=== PATIENT | male | born 1975 | race African-American/Black ===

== ENCOUNTER 2016-08-25 10:16 | Inpatient (IN) | payer OTHER ==
[2016-08-25 12:33] VITALS: BMI 25.8
--- NOTE | 2016-08-25 14:01 | HP ---
CIWA Score - CIWA Score Nausea/Vomitin Muscle Tremors: 3 Anxiety: 3 Agitation: 3 Paroxysmal Sweats: 1-Minimal Palms Moist Orientation: 0-Oriented Tacttile Disturbances: 2-Mild Itch/Numbness/Burn Auditory Disturbances: 2-Mild Harshness/Frighten Visual Disturbances: 2-Mild Sensitivity Headache: 2-Mild CIWA-Ar Total Score: 21 Admission ROS BHS - HPI Chief Complaint: I NEED HELP TO STOP DRINKING ALCOHOL AND COCAINE Allergies/Adverse Reactions: Allergies Allergy/AdvReac Type Severity Reaction Status Date / Time No Known Allergies Allergy Verified 08/25/16 13:55 History of Present Illness: THIS 41 YEARS OLD MALE WITH ALCOHOL AND COCAINE DEPENDENCE SEEKING HELP TO STOP USING,LAST DETOX [facility] 12/17/15 TO 12/20/15 SEVERAL ADMISSIONS IN THE PAST KEEP RELAPSING NO SIGNIFICANT PERIOD OF SOBRIETY Exam Limitations: No Limitations - Ebola screening Have you traveled outside of the country in the last 21 days: No Have you had contact with anyone from an Ebola affected area: No Have you been sick,other than usual withdrawal symptoms: No Do you have a fever: No - Review of Systems Constitutional: Chills, Diaphoresis, Loss of Appetite, Malaise, Night Sweats, Changes in sleep, Weakness EENT: reports: Nose Congestion Respiratory: reports: No Symptoms reported Cardiac: reports: Palpitations GI: reports: Diarrhea, Nausea, Vomiting, Abdominal cramping : reports: No Symptoms Reported Musculoskeletal: reports: Muscle Pain Integumentary: reports: Dryness, Other (BLISTER BOTH FEET) Neuro: reports: Headache, Seizure, Tremors Endocrine: reports: No Symptoms Reported Hematology: reports: No Symptoms Reported Psychiatric: reports: No Sypmtoms Reported, Judgement Intact, Mood/Affect Appropiate, other (SCHIZOAFFECTIVE DISORDER) Other Systems: Reviewed and Negative Patient History - Patient Medical History Hx Anemia: No Hx Asthma: No Hx Chronic Obstructive Pulmonary Disease (COPD): No Hx Cancer: No Hx Cardiac Disorders: No Hx Congestive Heart Failure: No Hx Hypertension: No Hx Hypercholesterolemia: No Hx Pacemaker: No HX Cerebrovascular Accident: No Hx Seizures: No Hx Dementia: No Hx Diabetes: No Hx Gastrointestinal Disorders: No Hx Liver Disease: No Hx Genitourinary Disorders: No Hx Sexually Transmitted Disorders: No Hx Renal Disease (ESRD): No Hx Thyroid Disease: No Hx Human Immunodeficiency Virus (HIV): No (last 04/07 last negative) Hx Hepatitis C: No Hx Depression: Yes Hx Suicide Attempt: No Hx Bipolar Disorder: No Hx Schizophrenia: Yes (SCHZOAFFECTIVE DISORDER) - Patient Surgical History Past Surgical History: No Hx Neurologic Surgery: No Hx Cataract Extraction: No Hx Cardiac Surgery: No Hx Lung Surgery: No Hx Breast Surgery: No Hx Breast Biopsy: No Hx Abdominal Surgery: No Hx Appendectomy: No Hx Cholecystectomy: No Hx Genitourinary Surgery: No Hx Section: No Hx Orthopedic Surgery: No Anesthesia Reaction: No - PPD History Previous Implant?: Yes Documented Results: Negative w/o proof Date: 01/14/15 Results: 0 mm PPD to be Administered?: Yes - Smoking Cessation Smoking history: Current every day smoker Have you smoked in the past 12 months: Yes Aproximately how many cigarettes per day: 20 Hx Chewing Tobacco Use: No Initiated information on smoking cessation: Yes 'Breaking Loose' booklet given: 08/25/16 - Substance & Tx. History Hx Alcohol Use: Yes Hx Substance Use: Yes Substance Use Type: Alcohol, Cocaine Hx Substance Use Treatment: Yes (12/17/15 TO 12/20/15) - Substances Abused Alcohol Route: Oral Frequency: Daily Amount used: 1 pint liquor Age of first use: 21 Date of Last Use: 08/24/16 Cocaine Route: Inhalation Frequency: Daily Amount used: 1 gram Age of first use: 23 Date of Last Use: 08/24/16 Family Disease History - Family Disease History Family Disease History: Diabetes: Grandparent, Other: Father (alcohol, cocaine) , Mother (alcohol, cocaine) Admission Physical Exam S - Vital Signs Vital Signs: Vital Signs - 24 hr 08/25/16 12:28 Temperature 96 F L Pulse Rate 73 Respiratory 20 Rate Blood Pressure 156/72 - Physical General Appearance: Yes: Moderate Distress, Tremorous, Irritable, Sweating, Anxious HEENTM: Yes: Normal ENT Inspection, PIERCE, Pharynx Normal Respiratory: Yes: Lungs Clear, Normal Breath Sounds, No Respiratory Distress Neck: Yes: No masses,lesions,Nodules, Supple, Trachea in good position Breast: Yes: Within Normal Limits Cardiology: Yes: Within Normal Limits, Regular Rhythm, Regular Rate, S1, S2 Abdominal: Yes: Within Normal Limits, Normal Bowel Sounds, Flat, Soft Genitourinary: Yes: Within Normal Limits Back: Yes: Normal Inspection, Muscle Spasm Musculoskeletal: Yes: Back pain, Joint Stiffness, Muscle Pain Extremities: Yes: Within Normal Limits, Normal Inspection, Normal Range of Motion, Tremors Neurological: Yes: day spa manager II-XII NML intact, Alert, Motor Strength 5/5 Integumentary: Yes: Dry Lymphatic: Yes: Within Normal Limits - Diagnostic (1) Alcohol dependence with uncomplicated withdrawal Current Visit: Yes Status: Acute (2) Seizure Current Visit: Yes Status: Acute (3) Weight loss Current Visit: Yes Status: Acute (4) Cocaine abuse Current Visit: Yes Status: Chronic (5) Nicotine dependence Current Visit: Yes Status: Chronic Qualifiers: Nicotine product type: cigarettes Substance use status: uncomplicated Qualified Code(s): F17.210 - Nicotine dependence, cigarettes, uncomplicated (6) Schizoaffective disorder Current Visit: Yes Status: Chronic (7) ADHD (attention deficit hyperactivity disorder) Current Visit: No Status: Chronic Cleared for Admission [facility] - Detox or Rehab [facility] Level of Care: Medically Managed Detox Regimen/Protocol: Librium [facility] Breath Alcohol Content Breath Alcohol Content: 0 Urine Drug Screen - Results Drug Screen Negative: No Urine Drug Screen Results: MINDY-Cocaine
[2016-08-25] MEDS ORDERED: LOPERAMIDE HCL 2 MG CAPSULE PO PRN (14:35)
[2016-08-25] MEDS ORDERED: hydrOXYzine PAMOATE 50 MG CAPSULE (FP) PO PRN (14:35)
[2016-08-25] MEDS ORDERED: NICOTINE POLACRILEX 2 MG GUM BUC PRN (14:35)
[2016-08-25] MEDS ORDERED: MENTHOL/PHENOL 1 EACH UD MM PRN (14:35)
[2016-08-25] MEDS ORDERED: guaiFENesin/D-METHORPHAN HB 10 ML UNIT-DOSE CUPS PO PRN (14:35)
[2016-08-25] MEDS ORDERED: IBUPROFEN 400 MG TABLET (FP) PO PRN (14:35)
[2016-08-25] MEDS ORDERED: P-EPHED 60MG/TRIPROLIDI 2.5MG TABLET PO PRN (14:35)
[2016-08-25] MEDS ORDERED: MAG HYDROX/AL HYDROX/SIMETH 30 ML UNIT-DOSE CUP PO PRN (14:35)
[2016-08-25] MEDS ORDERED: MAGNESIUM CITRATE 300 ML BOTTLE PO PRN (14:35)
[2016-08-25] MEDS ORDERED: MAGNESIUM HYDROX 2400MG/30ML ORAL SUSPENSION 30 ML CUP PO PRN (14:35)
[2016-08-25] MEDS ORDERED: ACETAMINOPHEN 325 MG TABLET (FP) PO PRN (14:35)
[2016-08-25] MEDS ORDERED: chlordiazePOXIDE HCL 25 MG CAPSULE PO PRN (14:35)
[2016-08-25] MEDS ORDERED: diphenhydrAMINE HCL 50 MG CAPSULE PO PRN (14:35)
[2016-08-25] MEDS ORDERED: chlordiazePOXIDE HCL 25 MG CAPSULE PO ONE (14:36)
[2016-08-25 16:22] LABS: URINE APPEARANCE CLEAR; URINE BILIRUBIN NEGATIVE (NEGATIVE); URINE COLOR YELLOW; URINE GLUCOSE (UA) NEGATIVE (NEGATIVE); URINE KETONE 1+ (NEGATIVE); URINE LEUK ESTERASE NEGATIVE (NEGATIVE); URINE NITRITE NEGATIVE (NEGATIVE); URINE UROBILINOGEN 2.0 E.U/dl E.U./dl (0.2-1.0)
[2016-08-25 16:54] LABS: URINE BLOOD 1+ (NEGATIVE); URINE PROTEIN 1+ (NEGATIVE)
[2016-08-25 17:16] LABS: URINE MUCUS MANY; URINE RBC 5 /hpf (0-3); URINE WBC 2 /hpf (3-5)
[2016-08-25] MEDS: chlordiazePOXIDE HCL 25 MG CAPSULE PO SCH ×2 (17:23→22:58)
[2016-08-25] MEDS ORDERED: THIAMINE HCL 100 MG TABLET (FP) PO SCH (22:00)
[2016-08-26] MEDS: chlordiazePOXIDE HCL 25 MG CAPSULE PO SCH ×2 (06:02→10:57)
[2016-08-26 09:51] LABS: MCH 30.6 pg (25.7-33.7); MCHC 32.9 g/dl (32.0-35.9); MEAN CELL VOLUME 93.2 fl (80-96); MEAN PLT VOLUME 9.7 fl (7.5-11.1); PLATELET COUNT 260 K/MM3 (134-434); RDW 13.7 % (11.9-15.9); WHITE BLOOD COUNT 7.3 K/mm3 (4.0-10.0)
[2016-08-26] MEDS ORDERED: PRENATAL VITAMINS W/ FOLIC ACID TABLET (FP) PO SCH (10:00)
[2016-08-26 10:11] VITALS: BP 127/78; PULSE 73; TEMP 96.1
[2016-08-26 10:21] LABS: ALBUMIN 4.5 g/dl (3.4-5.0); ALK PHOS 62 U/L (45-117); ANION GAP 11 (8-16); BILIRUBIN,TOTAL 0.9 mg/dL (0.2-1.0); CALCIUM 9.5 mg/dL (8.5-10.1); CO2 29 mmol/L (21-32); COCKROFT - GAULT 85.65; CREATININE 1.3 mg/dL (0.7-1.3); GLUCOSE,RANDOM 107 mg/dL (74-106); SGOT/AST 53 U/L (15-37); SGPT/ALT 40 U/L (12-78)
[2016-08-26] MEDS ORDERED: AMMONIUM LACTATE 12% LOTION 225 GM BOTTLE TP SCH (10:45)
--- NOTE | 2016-08-26 11:42 | EKG ---
Test Reason : Blood Pressure : / mmHG Vent. Rate : 079 BPM Atrial Rate : 079 BPM P-R Int : 154 ms QRS Dur : 102 ms QT Int : 440 ms P-R-T Axes : 071 071 069 degrees QTc Int : 504 ms NORMAL SINUS RHYTHM WITH SINUS ARRHYTHMIA POSSIBLE LEFT ATRIAL ENLARGEMENT LEFT VENTRICULAR HYPERTROPHY PROLONGED QT ABNORMAL ECG NO PREVIOUS ECGS AVAILABLE Confirmed by DES CONTEH MD ([id number]) on 08/26/2016 11:42:20 AM Referred By: Confirmed By:DES CONTEH MD
--- NOTE | 2016-08-26 11:50 | CONSULT ---
[facility] Psychiatric Consult - Data Date of interview: 08/26/16 Admission source: [facility] Identifying data: Readmission to [facility] for this 41 y/o AA male seeking detox treatment for alcohol and cocaine dependence.Patient is single,a father of four,homeless,unemployed and supported on welfare. Substance Abuse History: - Smoking Cessation. Smoking history: Current every day smoker. Have you smoked in the past 12 months: Yes. Aproximately how many cigarettes per day: 20. Hx Chewing Tobacco Use: No. Initiated information on smoking cessation: Yes. 'Breaking Loose' booklet given: 08/25/16. - Substance & Tx. History. Hx Alcohol Use: Yes. Hx Substance Use: Yes. Substance Use Type : Alcohol, Cocaine. Hx Substance Use Treatment: Yes (12/17/15 TO 12/20/15). - Substances Abused. Alcohol. Route: Oral. Frequency: Daily. Amount used: 1 pint liquor. Age of first use: 21. Date of Last Use: 08/24/16. Cocaine. Route: Inhalation. Frequency: Daily. Amount used: 1 gram. Age of first use : 23. Date of Last Use: 08/24/16. Confirmed by the patient. Medical History: Patient endorses good general health. Psychiatric History: Patient presentswith an extensive history of psychiatric illness.Early onset od emotional disturbances (age 10-12) and behavioral issues.Diagnosed with ADHD (treated with psychostimulants) and later re- diagnosed with Schizoaffective Disorder.Patient admits to a history of multiple psychiatric hospitalizations.Mr Quiles is known to [facility] and other facilities ([place]).Has been prescribed various medications which include risperdal,wellbutrin,buspar,vistaril and seroquel.Patient reports current OPD care at the [facility] health clinic in [facility].Maintenance medications are reported to be seroquel and buspar (doses not recalled).Questionable adherence to psychiatric aftercare.Patient denies history of suicide attempts. Physical/Sexual Abuse/Trauma History: Patient denies. Additional Comment: Urine Drug Screen Results: MINDY-Cocaine.Noted. Mental Status Exam - Mental Status Exam Alert and Oriented to: Time, Place, Person Cognitive Function: Grossly Intact Patient Appearance: Well Groomed Mood: Withdrawn Affect: Normal Range Patient Behavior: Fatigued Speech Pattern: Clear Voice Loudness: Normal Thought Process: Goal Oriented Thought Disorder: Not Present Hallucinations: Denies Suicidal Ideation: Denies Homicidal Ideation: Denies Insight/Judgement: Poor Sleep: Fair Appetite: Good Muscle strength/Tone: Normal Gait/Station: Normal Psychiatric Findings - Problem List ([place] 1, 2,3) (1) Schizoaffective disorder Current Visit: Yes Status: Chronic (2) Alcohol dependence with uncomplicated withdrawal Current Visit: Yes Status: Acute (3) Cocaine dependence Current Visit: Yes Status: Acute (4) Nicotine dependence Current Visit: Yes Status: Acute Qualifiers: Nicotine product type: cigarettes Substance use status: uncomplicated Qualified Code(s): F17.210 - Nicotine dependence, cigarettes, uncomplicated - Initial Treatment Plan Initial Treatment Plan: Psychoeducation.Detoxification.Medications : risperdal 1 mg po bid + buspar 5 mg po bid + wellbutrin XL 150 mg po daily.Side effects/ benefits discussed with the patient.Informed of potential for abnormal involuntary movements,dystonias,dyskinesias,akathisia,neuroleptic malignant syndrome,cardiac adverse events,endocrine complications (sexual impotence, galactorrhea,gynecomastia) with use of risperdal,seizures (bupropion) and sedation (buspar).Patient is in agreement with this careplan.Observation.
--- NOTE | 2016-08-26 12:31 | DS ---
[facility] Detox Discharge Summary Admission Date: 08/25/16 Discharge Date: 08/26/16 - History Present History: Alcohol Dependence, Cocaine Dependence Additional Comments: PT. ADVISED TO FOLLOW-UP WITH [facility]THOPED[facility] FOR GENERAL MEDICAL ASSESSMENT. Pertinent Past History: Depression, Schizoaffective Disorder. - Physical Exam Results Vital Signs: Vital Signs Temperature 96.1 F L 08/26/16 10:11 Pulse Rate 73 08/26/16 10:11 Respiratory Rate 18 08/26/16 10:11 Blood Pressure 127/78 08/26/16 10:11 O2 Sat by Pulse Oximetry (%) Pertinent Admission Physical Exam Findings: WITHDRAWAL SYMPTOMS. Laboratory Tests 08/25/16 08/26/16 08/26/16 15:00 06:00 06:00 WBC 7.3 D RBC 4.74 Hgb 14.5 D Hct 44.1 MCV 93.2 MCHC 32.9 RDW 13.7 Plt Count 260 D MPV 9.7 D Sodium 136 Potassium 3.9 Chloride 96 L Carbon Dioxide 29 Anion Gap 11 BUN 19 H Creatinine 1.3 Creat Clearance w eGFR > 60 Random Glucose 107 H Calcium 9.5 Total Bilirubin 0.9 D AST 53 H D ALT 40 D Alkaline Phosphatase 62 D Total Protein 8.0 D Albumin 4.5 D Urine Color Yellow Urine Appearance Clear Urine pH 5.0 Ur Specific [place] >= 1.030 H Urine Protein 1+ H Urine Glucose (UA) Negative Urine Ketones 1+ H Urine Blood 1+ H Urine Nitrite Negative Urine Bilirubin Negative Urine Urobilinogen 2.0 e.u/dl Ur Leukocyte Esterase Negative Urine RBC 5 Urine WBC 2 Urine Mucus Many LABS NOTED. - Treatment Hospital Course: Detoxed Safely - Medication Discharge Medications: Ambulatory Orders Bupropion HCl [Wellbutrin Xl -] 150 mg PO DAILY #30 tab.sr.24h 01/12/15 Buspirone HCl [Buspar -] 5 mg PO DAILY #30 tablet 01/12/15 Risperidone [Risperdal] 2 mg PO HS #30 tablet 01/12/15 Bupropion HCl [Wellbutrin Xl -] 150 mg PO DAILY #30 tab.sr.24h 08/26/16 Buspirone HCl [Buspar -] 5 mg PO DAILY #30 tablet 08/26/16 Risperidone [Risperdal] 2 mg PO HS #30 tablet 08/26/16 - Diagnosis (1) Alcohol dependence with uncomplicated withdrawal Current Visit: Yes Status: Acute (2) Nicotine dependence Current Visit: Yes Status: Chronic Qualifiers: Nicotine product type: cigarettes Substance use status: uncomplicated Qualified Code(s): F17.210 - Nicotine dependence, cigarettes, uncomplicated (3) Seizure Current Visit: Yes Status: Chronic (4) Cocaine abuse Current Visit: Yes Status: Chronic (5) Schizoaffective disorder Current Visit: Yes Status: Chronic Qualifiers: Schizoaffective disorder type: unspecified Qualified Code(s): F25.9 - Schizoaffective disorder, unspecified (6) ADHD (attention deficit hyperactivity disorder) Current Visit: Yes Status: Chronic Qualifiers: Attention deficit-hyperactivity disorder type: unspecified Qualified Code(s): F90.9 - Attention-deficit hyperactivity disorder, unspecified type - AMA Did Patient Leave Against Medical Advice: Yes (PT HAD OTHER AFFAIR TO ATTEND TO AND DID NOT WANT TO STAY TO COMPLETE DETOX)
[2016-08-26] MEDS ORDERED: chlordiazePOXIDE HCL 25 MG CAPSULE PO SCH (17:00)
[2016-08-26] MEDS ORDERED: busPIRone HCL 5 MG TABLET PO SCH (22:00)
[2016-08-26] MEDS ORDERED: risperiDONE 1 MG TABLET (FP) PO SCH (22:00)
[2016-08-27] MEDS ORDERED: chlordiazePOXIDE 5 MG CAPSULE PO SCH (17:00)
[2016-08-28] MEDS ORDERED: chlordiazePOXIDE HCL 10 MG CAPSULE PO SCH (17:00)
== END 2016-08-26 12:05 | disposition left against medical advice (07) | DRG 770 ==
LOC: YASAS 10:16 → Y3N 14:45
PROVIDERS: ADMIT Internal Medicine; ATTEND Internal Medicine
PROC: HZ2ZZZZ Detoxification Services for Substance Abuse Treatment (ICD-10-PCS; principal; 2016-08-26)
DX: F10.230 Alcohol dependence with withdrawal, uncomplicated (principal); F17.210 Nicotine dependence, cigarettes, uncomplicated; F14.10 Cocaine abuse, uncomplicated; F25.9 Schizoaffective disorder, unspecified; G40.909 Epilepsy, unspecified, not intractable, without status epilepticus; F90.9 Attention-deficit hyperactivity disorder, unspecified type
CPT/HCPCS: 36415; 80053; 81003; 81015; 85027; 86593; 93005; 93010

== ENCOUNTER 2016-11-18 11:02 | Inpatient (IN) | payer OTHER ==
[2016-11-18 11:50] VITALS: BMI 25.0
--- NOTE | 2016-11-18 14:10 | HP ---
CIWA Score - CIWA Score Nausea/Vomitin-Int. Nausea w/Dry Heave Muscle Tremors: 4-Moderate,w/Arms Extend Anxiety: 4-Mod. Anxious/Guarded Agitation: 4-Moderately Restless Paroxysmal Sweats: 1-Minimal Palms Moist Orientation: 0-Oriented Tacttile Disturbances: 3-Moderate Itch/Numb/Burn Auditory Disturbances: 0-None Visual Disturbances: 0-None Headache: 0-None Present CIWA-Ar Total Score: 20 Admission ROS BHS - HPI Chief Complaint: DETOX [place] FOR ALCOHOL DEPENDENCE Allergies/Adverse Reactions: Allergies Allergy/AdvReac Type Severity Reaction Status Date / Time No Known Allergies Allergy Verified 11/18/16 12:44 History of Present Illness: 41 Y/O AA/MALE WITH A HX OF ALCOHOL AND COCAINE DEPENDENCE SEEKING DETOX [place] Exam Limitations: Clinical Condition - Ebola screening Have you traveled outside of the country in the last 21 days: No Have you had contact with anyone from an Ebola affected area: No Have you been sick,other than usual withdrawal symptoms: No Do you have a fever: No - Review of Systems Constitutional: Chills, Loss of Appetite, Night Sweats, Changes in sleep, Unintentional Wgt. Loss EENT: reports: Tearing, Nose Congestion Respiratory: reports: No Symptoms reported Cardiac: reports: Lightheadedness GI: reports: Constipated, Diarrhea, Nausea, Poor Appetite, Poor Fluid Intake, Vomiting : reports: No Symptoms Reported Musculoskeletal: reports: No Symptoms Reported Integumentary: reports: No Symptoms Reported Neuro: reports: Headache, Tremors, Unsteady Gait, Dizziness Endocrine: reports: No Symptoms Reported Hematology: reports: Anemia Psychiatric: reports: Orientated x3, Anxious, Depressed Other Systems: Reviewed and Negative Patient History - Patient Medical History Hx Anemia: Yes (NO CURRENT MED) Hx Asthma: No Hx Chronic Obstructive Pulmonary Disease (COPD): No Hx Cancer: No Hx Cardiac Disorders: No Hx Congestive Heart Failure: No Hx Hypertension: No Hx Hypercholesterolemia: No Hx Pacemaker: No HX Cerebrovascular Accident: No Hx Seizures: No Hx Dementia: No Hx Diabetes: No Hx Gastrointestinal Disorders: No Hx Liver Disease: No Hx Genitourinary Disorders: No Hx Sexually Transmitted Disorders: No (DENIES) Hx Renal Disease (ESRD): No Hx Thyroid Disease: No Hx Human Immunodeficiency Virus (HIV): No (last 04/07 last negative hx) Hx Hepatitis C: No Hx Depression: Yes (ON MEDS BUT HAS NOT TAKEN FOR A MONYH) Hx Suicide Attempt: No (DENIES) Hx Bipolar Disorder: No Hx Schizophrenia: Yes (SCHIZOAFFECTIVE DISORDER) - Patient Surgical History Past Surgical History: No Hx Neurologic Surgery: No Hx Cataract Extraction: No Hx Cardiac Surgery: No Hx Lung Surgery: No Hx Breast Surgery: No Hx Breast Biopsy: No Hx Abdominal Surgery: No Hx Appendectomy: No Hx Cholecystectomy: No Hx Genitourinary Surgery: No Hx Orthopedic Surgery: No Anesthesia Reaction: No - PPD History Previous Implant?: Yes Documented Results: Negative w/o proof Implanted On Prior [facility] Admission?: Yes Date: 08/27/16 Results: 0 mm PPD to be Administered?: No - Reproductive History Patient is a Female of Child Bearing Age (11 -55 yrs old): No (MALE) Patient : (N/A) - Smoking Cessation Smoking history: Current every day smoker Have you smoked in the past 12 months: Yes Aproximately how many cigarettes per day: 20 Hx Chewing Tobacco Use: No Initiated information on smoking cessation: Yes 'Breaking Loose' booklet given: 11/18/16 - Substance & Tx. History Hx Alcohol Use: Yes (VODKA) Hx Substance Use: Yes (COCAINE) Substance Use Type: Alcohol, Cocaine Hx Substance Use Treatment: Yes (LAST TX AT [facility] [place] 08/2016) - Substances Abused Alcohol Route: Oral Frequency: Daily Amount used: 2 fifth vodka Age of first use: 20 Date of Last Use: 11/17/16 Cocaine Route: Smoking Frequency: Daily Amount used: 1 gram Age of first use: 23 Date of Last Use: 11/18/16 Family Disease History - Family Disease History Family Disease History: Diabetes: Grandparent, Other: Father (alcohol, cocaine) , Mother (alcohol, cocaine) Admission Physical Exam BHS - Vital Signs Vital Signs: Vital Signs - 24 hr 11/18/16 11:48 Temperature 98 F Pulse Rate 76 Respiratory 20 Rate Blood Pressure 127/60 - Physical General Appearance: Yes: Moderate Distress, Thin, Irritable, Anxious HEENTM: Yes: EOMI, Normocephalic, PIERCE, Pharynx Normal Respiratory: Yes: Chest Non-Tender, Lungs Clear, Normal Breath Sounds, No Respiratory Distress Neck: Yes: Supple, Trachea in good position Breast: Yes: Breast Exam Deferred Cardiology: Yes: Regular Rhythm, Regular Rate, S1, S2 Abdominal: Yes: Normal Bowel Sounds, Non Tender, Flat, Soft Genitourinary: Yes: Other (N/C) Back: Yes: Within Normal Limits Musculoskeletal: Yes: full range of Motion, Gait Steady Extremities: Yes: Normal Range of Motion, Non-Tender Neurological: Yes: wildlife officer II-XII NML intact, Fully Oriented, Alert Integumentary: Yes: Dry, Warm Lymphatic: Yes: Within Normal Limits - Diagnostic (1) Alcohol dependence with uncomplicated withdrawal Current Visit: Yes Status: Acute (2) Cocaine dependence Current Visit: Yes Status: Acute Qualifiers: Substance use status: uncomplicated Qualified Code(s): F14.20 - Cocaine dependence, uncomplicated (3) Weight loss Current Visit: Yes Status: Acute (4) Nicotine dependence Current Visit: Yes Status: Acute Qualifiers: Nicotine product type: cigarettes Substance use status: in withdrawal Qualified Code(s): F17.213 - Nicotine dependence, cigarettes, with withdrawal (5) History of anemia Current Visit: Yes Status: Suspected Cleared for Admission [facility] - Detox or Rehab [facility] Level of Care: Medically Managed Detox Regimen/Protocol: Librium [facility] Breath Alcohol Content Breath Alcohol Content: 0 Urine Drug Screen - Results Drug Screen Negative: No Urine Drug Screen Results: MINDY-Cocaine
[2016-11-18] MEDS ORDERED: MAGNESIUM HYDROX 2400MG/30ML ORAL SUSPENSION 30 ML CUP PO PRN (14:24)
[2016-11-18] MEDS ORDERED: LOPERAMIDE HCL 2 MG CAPSULE PO PRN (14:24)
[2016-11-18] MEDS ORDERED: MENTHOL/PHENOL 1 EACH UD MM PRN (14:24)
[2016-11-18] MEDS ORDERED: MAG HYDROX/AL HYDROX/SIMETH 30 ML UNIT-DOSE CUP PO PRN (14:24)
[2016-11-18] MEDS ORDERED: hydrOXYzine PAMOATE 25 MG CAPSULE (FP) PO PRN (14:24)
[2016-11-18] MEDS ORDERED: ACETAMINOPHEN 325 MG TABLET (FP) PO PRN (14:24)
[2016-11-18] MEDS ORDERED: chlordiazePOXIDE HCL 25 MG CAPSULE PO PRN (14:24)
[2016-11-18] MEDS ORDERED: P-EPHED 60MG/TRIPROLIDI 2.5MG TABLET PO PRN (14:24)
[2016-11-18] MEDS ORDERED: guaiFENesin/D-METHORPHAN HB 10 ML UNIT-DOSE CUPS PO PRN (14:24)
[2016-11-18] MEDS ORDERED: MAGNESIUM CITRATE 300 ML BOTTLE PO PRN (14:24)
[2016-11-18] MEDS ORDERED: chlordiazePOXIDE HCL 25 MG CAPSULE PO ONE (15:00)
[2016-11-18] MEDS: NICOTINE 14 MG/24 HOURS TOPICAL PATCH TD SCH (15:17)
[2016-11-18] MEDS: NICOTINE POLACRILEX 2 MG GUM BC PRN (15:24)
[2016-11-18 16:47] LABS: MCH 30.3 pg (25.7-33.7); MCHC 32.9 g/dl (32.0-35.9); MEAN CELL VOLUME 92.3 fl (80-96); MEAN PLT VOLUME 8.9 fl (7.5-11.1); PLATELET COUNT 339 K/MM3 (134-434); RDW 15.1 % (11.9-15.9); WHITE BLOOD COUNT 4.2 K/mm3 (4.0-10.0)
[2016-11-18 16:57] LABS: URINE APPEARANCE SLCLOUDY; URINE BILIRUBIN NEGATIVE (NEGATIVE); URINE BLOOD 1+ (NEGATIVE); URINE COLOR YELLOW; URINE GLUCOSE (UA) 1+ (NEGATIVE); URINE KETONE TRACE (NEGATIVE); URINE LEUK ESTERASE NEGATIVE (NEGATIVE); URINE NITRITE NEGATIVE (NEGATIVE); URINE PROTEIN NEGATIVE (NEGATIVE); URINE UROBILINOGEN NEGATIVE mg/dL (0.2-1.0)
[2016-11-18 17:11] LABS: URINE MUCUS MANY; URINE RBC 2 /hpf (0-3); URINE WBC 1 /hpf (3-5)
[2016-11-18 17:20] LABS: ALBUMIN 3.8 g/dl (3.4-5.0); ANION GAP 7 (8-16); CALCIUM 9.2 mg/dL (8.5-10.1); CO2 31 mmol/L (21-32); GLUCOSE,RANDOM 134 mg/dL (74-106)
[2016-11-18 17:25] LABS: ALK PHOS 75 U/L (45-117); BILIRUBIN,TOTAL 0.5 mg/dL (0.2-1.0); SGOT/AST 10 U/L (15-37); SGPT/ALT 22 U/L (12-78); TOT PROT 7.3 g/dl (6.4-8.2)
[2016-11-18] MEDS: chlordiazePOXIDE HCL 25 MG CAPSULE PO SCH ×2 (17:42→22:09)
[2016-11-18] MEDS: diphenhydrAMINE HCL 50 MG CAPSULE PO PRN (22:09)
[2016-11-18] MEDS: THIAMINE HCL 100 MG TABLET (FP) PO SCH (22:09)
[2016-11-19] MEDS: chlordiazePOXIDE HCL 25 MG CAPSULE PO SCH ×4 (06:12→22:19)
--- NOTE | 2016-11-19 09:13 | CONSULT ---
[facility] Psychiatric Consult - Data Date of interview: 11/19/16 Admission source: [facility] Identifying data: This is 41 years old male with history of psychiatric hospitalization, history of Schizoaffective disorder intoxicated with: Alcohol , Cocaine, Nicotine and Cannabis Substance Abuse History: - Smoking Cessation. Smoking history: Current every day smoker. Have you smoked in the past 12 months: Yes. Aproximately how many cigarettes per day: 20. Hx Chewing Tobacco Use: No. Initiated information on smoking cessation: Yes. 'Breaking Loose' booklet given: 11/18/16. - Substance & Tx. History. Hx Alcohol Use: Yes (VODKA). Hx Substance Use: Yes (COCAINE). Substance Use Type: Alcohol, Cocaine. Hx Substance Use Treatment: Yes (LAST TX AT [facility] [place] 08/2016). - Substances Abused. Alcohol. Route: Oral. Frequency: Daily. Amount used: 2 fifth vodka. Age of first use: 20. Date of Last Use: 11/17/16. Cocaine. Route: Smoking. Frequency: Daily. Amount used: 1 gram. Age of first use: 23. Date of Last Use: 11/18/16 Medical History: Asthma, Syncope history, Psychiatric History: Patient reports history of Schizoaffective disorder with most recent psychiatric admission on 3 months ago at [facility] for safety , as per computer [atient has been on: Risperdal 2mg po qhs. Buspar 5mg poqd. Wellbutrin XL 150mg poqd Physical/Sexual Abuse/Trauma History: Denies Additional Comment: Risperdal 2mg po qhs. Buspar 5mg poqd. Wellbutrin XL 150mg poqd Mental Status Exam - Mental Status Exam Alert and Oriented to: Person Cognitive Function: Fair Patient Appearance: Unkempt Mood: Sad Affect: Flat Patient Behavior: Sedated Speech Pattern: Delayed Voice Loudness: Mildly Soft/Quiet Thought Process: Circumstantial Thought Disorder: Being Controlled Hallucinations: Denies Suicidal Ideation: Denies Insight/Judgement: Fair Sleep: Difficulty falling asleep Appetite: Weight loss Muscle strength/Tone: Mild Hypotonicity Gait/Station: Shuffling Additional Comments: Risperdal 2mg po qhs. Buspar 5mg poqd. Wellbutrin XL 150mg poqd Psychiatric Findings - Problem List ([place] 1, 2,3) (1) Alcohol dependence with uncomplicated withdrawal Current Visit: Yes Status: Acute (2) Cocaine dependence Current Visit: Yes Status: Acute Qualifiers: Substance use status: uncomplicated Qualified Code(s): F14.20 - Cocaine dependence, uncomplicated (3) Nicotine dependence Current Visit: Yes Status: Acute Qualifiers: Nicotine product type: cigarettes Substance use status: in withdrawal Qualified Code(s): F17.213 - Nicotine dependence, cigarettes, with withdrawal (4) ADHD (attention deficit hyperactivity disorder) Current Visit: No Status: Chronic Qualifiers: Attention deficit-hyperactivity disorder type: unspecified Qualified Code(s): F90.9 - Attention-deficit hyperactivity disorder, unspecified type (5) Alcohol dependence Current Visit: No Status: Chronic Qualifiers: Substance use status: uncomplicated Qualified Code(s): F10.20 - Alcohol dependence, uncomplicated (6) Cannabis abuse Current Visit: No Status: Chronic (7) Cocaine abuse Current Visit: No Status: Chronic (8) Schizoaffective disorder Current Visit: No Status: Chronic Qualifiers: Schizoaffective disorder type: unspecified Qualified Code(s): F25.9 - Schizoaffective disorder, unspecified - Initial Treatment Plan Initial Treatment Plan: Risperdal 2mg po qhs. Buspar 5mg poqd. Wellbutrin XL 150mg poqd. Patient refusing to restart psychiatric medications
[2016-11-19] MEDS: PRENATAL VITAMINS W/ FOLIC ACID TABLET (FP) PO SCH (11:02)
[2016-11-19] MEDS: NICOTINE 14 MG/24 HOURS TOPICAL PATCH TD SCH (11:02)
[2016-11-19] MEDS: NICOTINE POLACRILEX 2 MG GUM BC PRN (11:03)
--- NOTE | 2016-11-19 11:34 | EKG ---
Test Reason : Blood Pressure : / mmHG Vent. Rate : 062 BPM Atrial Rate : 062 BPM P-R Int : 154 ms QRS Dur : 104 ms QT Int : 440 ms P-R-T Axes : 067 071 070 degrees QTc Int : 446 ms NORMAL SINUS RHYTHM MINIMAL VOLTAGE CRITERIA FOR LVH, MAY BE NORMAL VARIANT BORDERLINE ECG WHEN COMPARED WITH ECG OF 25-AUG-2016 18:15, QT HAS SHORTENED Confirmed by ONUR MONTERO, INDIA ([id number]) on 11/19/2016 11:33:37 AM Referred By: Confirmed By:INDIA MOHR MD
--- NOTE | 2016-11-19 13:29 | PN ---
[facility] CIWA - CIWA Score Nausea/Vomitin Muscle Tremors: 4-Moderate,w/Arms Extend Anxiety: 4-Mod. Anxious/Guarded Agitation: 4-Moderately Restless Paroxysmal Sweats: 3 Orientation: 0-Oriented Tacttile Disturbances: 1-Very Mild Itch/Numbness Auditory Disturbances: 0-None Visual Disturbances: 0-None Headache: 1-Very Mild CIWA-Ar Total Score: 20 B[facility] Progress Note (SOAP) Subjective: nausea, sweats, interrupted sleep, anxiety, tremors Objective: 11/19/16 13:29 Vital Signs - 8 hr 11/19/16 06:39 Temperature 97.5 F L Pulse Rate 63 Respiratory 16 Rate Blood Pressure 117/66 Laboratory Tests 11/18/16 11/18/16 11/18/16 15:00 15:00 15:00 WBC 4.2 D RBC 4.83 Hgb 14.7 Hct 44.6 MCV 92.3 MCH 30.3 MCHC 32.9 RDW 15.1 D Plt Count 339 D MPV 8.9 Sodium 140 Potassium 4.5 Chloride 102 Carbon Dioxide 31 Anion Gap 7 L BUN 16 Creatinine 1.0 D Creat Clearance w eGFR > 60 Random Glucose 134 H D Calcium 9.2 Total Bilirubin 0.5 D AST 10 L D ALT 22 D Alkaline Phosphatase 75 D Total Protein 7.3 Albumin 3.8 Urine Color Urine Appearance Urine pH Ur Specific [place] Urine Protein Urine Glucose (UA) Urine Ketones Urine Blood Urine Nitrite Urine Bilirubin Urine Urobilinogen Ur Leukocyte Esterase Urine RBC Urine WBC Ur Epithelial Cells Urine Mucus RPR Titer Nonreactive 11/18/16 15:00 WBC RBC Hgb Hct MCV MCH MCHC RDW Plt Count MPV Sodium Potassium Chloride Carbon Dioxide Anion Gap BUN Creatinine Creat Clearance w eGFR Random Glucose Calcium Total Bilirubin AST ALT Alkaline Phosphatase Total Protein Albumin Urine Color Yellow Urine Appearance Slcloudy Urine pH 5.0 Ur Specific [place] >= 1.030 H Urine Protein Negative Urine Glucose (UA) 1+ H Urine Ketones Trace H Urine Blood 1+ H Urine Nitrite Negative Urine Bilirubin Negative Urine Urobilinogen Negative Ur Leukocyte Esterase Negative Urine RBC 2 Urine WBC 1 Ur Epithelial Cells Rare Urine Mucus Many RPR Titer Assessment: 11/19/16 13:29 withdrawal sx Plan: cont detox
[2016-11-19] MEDS: IBUPROFEN 400 MG TABLET (FP) PO PRN (18:19)
[2016-11-19] MEDS: THIAMINE HCL 100 MG TABLET (FP) PO SCH (22:19)
[2016-11-19] MEDS: diphenhydrAMINE HCL 50 MG CAPSULE PO PRN (22:19)
[2016-11-20] MEDS: chlordiazePOXIDE HCL 25 MG CAPSULE PO SCH ×2 (05:48→10:46)
[2016-11-20] MEDS: IBUPROFEN 400 MG TABLET (FP) PO PRN ×3 (05:49→22:31)
[2016-11-20] MEDS: NICOTINE 14 MG/24 HOURS TOPICAL PATCH TD SCH (10:46)
[2016-11-20] MEDS: PRENATAL VITAMINS W/ FOLIC ACID TABLET (FP) PO SCH (10:46)
--- NOTE | 2016-11-20 11:57 | PN ---
[facility] CIWA - CIWA Score Nausea/Vomitin Muscle Tremors: 3 Anxiety: 3 Agitation: 2 Paroxysmal Sweats: 1-Minimal Palms Moist Orientation: 0-Oriented Tacttile Disturbances: 1-Very Mild Itch/Numbness Auditory Disturbances: 1-Very Mild Visual Disturbances: 0-None Headache: 1-Very Mild CIWA-Ar Total Score: 15 S Progress Note (SOAP) Subjective: ALERT,IRRITABLE,ANXIOUS,INTERRUPTED SLEEP,TREMOR Objective: 11/20/16 11:53 Vital Signs Temperature 97.3 F L 11/20/16 10:00 Pulse Rate 70 11/20/16 10:00 Respiratory Rate 18 11/20/16 10:00 Blood Pressure 124/77 11/20/16 10:00 O2 Sat by Pulse Oximetry (%) 11/20/16 11:54 EKG NSR ,LVH NO CHEST PAIN,NO SOB,NO DIZZINESS Laboratory Last Values WBC 4.2 K/mm3 (4.0-10.0) D 11/18/16 15:00 RBC 4.83 M/mm3 (4.00-5.60) 11/18/16 15:00 Hgb 14.7 GM/dL (11.7-16.9) 11/18/16 15:00 Hct 44.6 % (35.4-49) 11/18/16 15:00 MCV 92.3 fl (80-96) 11/18/16 15:00 MCH 30.3 pg (25.7-33.7) 11/18/16 15:00 MCHC 32.9 g/dl (32.0-35.9) 11/18/16 15:00 RDW 15.1 % (11.9-15.9) D 11/18/16 15:00 Plt Count 339 K/MM3 (134-434) D 11/18/16 15:00 MPV 8.9 fl (7.5-11.1) 11/18/16 15:00 Sodium 140 mmol/L (136-145) 11/18/16 15:00 Potassium 4.5 mmol/L (3.5-5.1) 11/18/16 15:00 Chloride 102 mmol/L (98-107) 11/18/16 15:00 Carbon Dioxide 31 mmol/L (21-32) 11/18/16 15:00 Anion Gap 7 (8-16) L 11/18/16 15:00 BUN 16 mg/dL (7-18) 11/18/16 15:00 Creatinine 1.0 mg/dL (0.7-1.3) D 11/18/16 15:00 Creat Clearance w eGFR > 60 (>60) 11/18/16 15:00 Random Glucose 134 mg/dL (74-106) H D 11/18/16 15:00 Calcium 9.2 mg/dL (8.5-10.1) 11/18/16 15:00 Total Bilirubin 0.5 mg/dL (0.2-1.0) D 11/18/16 15:00 AST 10 U/L (15-37) L D 11/18/16 15:00 ALT 22 U/L (12-78) D 11/18/16 15:00 Alkaline Phosphatase 75 U/L (45-117) D 11/18/16 15:00 Total Protein 7.3 g/dl (6.4-8.2) 11/18/16 15:00 Albumin 3.8 g/dl (3.4-5.0) 11/18/16 15:00 Urine Color Yellow 11/18/16 15:00 Urine Appearance Slcloudy 11/18/16 15:00 Urine pH 5.0 (5.0-8.0) 11/18/16 15:00 Ur Specific [place] >= 1.030 (1.005-1.025) H 11/18/16 15:00 Urine Protein Negative (NEGATIVE) 11/18/16 15:00 Urine Glucose (UA) 1+ (NEGATIVE) H 11/18/16 15:00 Urine Ketones Trace (NEGATIVE) H 11/18/16 15:00 Urine Blood 1+ (NEGATIVE) H 11/18/16 15:00 Urine Nitrite Negative (NEGATIVE) 11/18/16 15:00 Urine Bilirubin Negative (NEGATIVE) 11/18/16 15:00 Urine Urobilinogen Negative mg/dL (0.2-1.0) 11/18/16 15:00 Ur Leukocyte Esterase Negative (NEGATIVE) 11/18/16 15:00 Urine RBC 2 /hpf (0-3) 11/18/16 15:00 Urine WBC 1 /hpf (3-5) 11/18/16 15:00 Ur Epithelial Cells Rare /hpf (FEW) 11/18/16 15:00 Urine Mucus Many 11/18/16 15:00 RPR Titer Nonreactive (NONREACTIVE) 11/18/16 15:00 Assessment: 11/20/16 11:56 WITHDRAWAL SYMPTOM Plan: CONTINUE DETOX,FASTING GLUCOSE IN AM
[2016-11-20] MEDS: chlordiazePOXIDE 5 MG CAPSULE PO SCH ×2 (17:55→22:30)
[2016-11-20] MEDS: diphenhydrAMINE HCL 50 MG CAPSULE PO PRN (22:31)
[2016-11-20] MEDS: THIAMINE HCL 100 MG TABLET (FP) PO SCH (22:33)
[2016-11-21] MEDS: IBUPROFEN 400 MG TABLET (FP) PO PRN (05:41)
[2016-11-21] MEDS: chlordiazePOXIDE 5 MG CAPSULE PO SCH ×2 (06:00→10:56)
[2016-11-21] MEDS: PRENATAL VITAMINS W/ FOLIC ACID TABLET (FP) PO SCH (10:56)
--- NOTE | 2016-11-21 11:41 | PN ---
[facility] Progress Note (SOAP) Subjective: nausea, sweats, interrupted sleep, anxeity, tremors Objective: 11/21/16 11:40 Vital Signs - 8 hr 11/21/16 11/21/16 06:00 10:11 Temperature 97.5 F L 97.5 F L Pulse Rate 70 71 Respiratory 18 18 Rate Blood Pressure 119/66 149/68 Laboratory Tests 11/18/16 11/18/16 11/18/16 15:00 15:00 15:00 WBC 4.2 D RBC 4.83 Hgb 14.7 Hct 44.6 MCV 92.3 MCH 30.3 MCHC 32.9 RDW 15.1 D Plt Count 339 D MPV 8.9 Sodium 140 Potassium 4.5 Chloride 102 Carbon Dioxide 31 Anion Gap 7 L BUN 16 Creatinine 1.0 D Creat Clearance w eGFR > 60 Random Glucose 134 H D Fasting Glucose Calcium 9.2 Total Bilirubin 0.5 D AST 10 L D ALT 22 D Alkaline Phosphatase 75 D Total Protein 7.3 Albumin 3.8 Urine Color Urine Appearance Urine pH Ur Specific [place] Urine Protein Urine Glucose (UA) Urine Ketones Urine Blood Urine Nitrite Urine Bilirubin Urine Urobilinogen Ur Leukocyte Esterase Urine RBC Urine WBC Ur Epithelial Cells Urine Mucus RPR Titer Nonreactive 11/18/16 11/21/16 15:00 07:00 WBC RBC Hgb Hct MCV MCH MCHC RDW Plt Count MPV Sodium Potassium Chloride Carbon Dioxide Anion Gap BUN Creatinine Creat Clearance w eGFR Random Glucose Fasting Glucose 94 Calcium Total Bilirubin AST ALT Alkaline Phosphatase Total Protein Albumin Urine Color Yellow Urine Appearance Slcloudy Urine pH 5.0 Ur Specific [place] >= 1.030 H Urine Protein Negative Urine Glucose (UA) 1+ H Urine Ketones Trace H Urine Blood 1+ H Urine Nitrite Negative Urine Bilirubin Negative Urine Urobilinogen Negative Ur Leukocyte Esterase Negative Urine RBC 2 Urine WBC 1 Ur Epithelial Cells Rare Urine Mucus Many RPR Titer Assessment: 11/21/16 11:40 withdrawal sx Plan: cont detox, fluids
[2016-11-21] MEDS: NICOTINE 14 MG/24 HOURS TOPICAL PATCH TD SCH (12:09)
[2016-11-21] MEDS: chlordiazePOXIDE HCL 10 MG CAPSULE PO SCH ×2 (17:37→23:29)
[2016-11-21] MEDS: THIAMINE HCL 100 MG TABLET (FP) PO SCH (22:20)
[2016-11-21] MEDS: diphenhydrAMINE HCL 50 MG CAPSULE PO PRN (22:20)
[2016-11-22] MEDS: chlordiazePOXIDE HCL 10 MG CAPSULE PO SCH ×2 (06:18→10:45)
--- NOTE | 2016-11-22 09:22 | DS ---
[facility] Detox Discharge Summary Admission Date: 11/18/16 Discharge Date: 11/22/16 - History Present History: Alcohol Dependence, Cocaine Dependence Pertinent Past History: nicotine dependence, cannabis abuse, anxiety, depression and insomnia - Physical Exam Results Vital Signs: Vital Signs Temperature 97.7 F 11/22/16 06:22 Pulse Rate 61 11/22/16 06:22 Respiratory Rate 16 11/22/16 06:22 Blood Pressure 125/55 11/22/16 06:22 O2 Sat by Pulse Oximetry (%) Laboratory Tests 11/18/16 11/18/16 11/18/16 15:00 15:00 15:00 WBC 4.2 D RBC 4.83 Hgb 14.7 Hct 44.6 MCV 92.3 MCH 30.3 MCHC 32.9 RDW 15.1 D Plt Count 339 D MPV 8.9 Sodium 140 Potassium 4.5 Chloride 102 Carbon Dioxide 31 Anion Gap 7 L BUN 16 Creatinine 1.0 D Creat Clearance w eGFR > 60 Random Glucose 134 H D Fasting Glucose Calcium 9.2 Total Bilirubin 0.5 D AST 10 L D ALT 22 D Alkaline Phosphatase 75 D Total Protein 7.3 Albumin 3.8 Urine Color Urine Appearance Urine pH Ur Specific [place] Urine Protein Urine Glucose (UA) Urine Ketones Urine Blood Urine Nitrite Urine Bilirubin Urine Urobilinogen Ur Leukocyte Esterase Urine RBC Urine WBC Ur Epithelial Cells Urine Mucus RPR Titer Nonreactive 11/18/16 11/21/16 15:00 07:00 WBC RBC Hgb Hct MCV MCH MCHC RDW Plt Count MPV Sodium Potassium Chloride Carbon Dioxide Anion Gap BUN Creatinine Creat Clearance w eGFR Random Glucose Fasting Glucose 94 Calcium Total Bilirubin AST ALT Alkaline Phosphatase Total Protein Albumin Urine Color Yellow Urine Appearance Slcloudy Urine pH 5.0 Ur Specific [place] >= 1.030 H Urine Protein Negative Urine Glucose (UA) 1+ H Urine Ketones Trace H Urine Blood 1+ H Urine Nitrite Negative Urine Bilirubin Negative Urine Urobilinogen Negative Ur Leukocyte Esterase Negative Urine RBC 2 Urine WBC 1 Ur Epithelial Cells Rare Urine Mucus Many RPR Titer Pertinent Admission Physical Exam Findings: withdrawal sx - Treatment Hospital Course: Detox Protocol Followed, Detoxed Safely, Responded well, Discharged Condition Good, Rehab Referral Accepted - Medication Discharge Medications: Ambulatory Orders Bupropion HCl [Wellbutrin Xl -] 150 mg PO DAILY #30 tab.sr.24h 01/12/15 Buspirone HCl [Buspar -] 5 mg PO DAILY #30 tablet 01/12/15 Risperidone [Risperdal] 2 mg PO HS #30 tablet 01/12/15 - Diagnosis (1) Alcohol dependence with uncomplicated withdrawal Current Visit: Yes Status: Chronic (2) Cocaine dependence Current Visit: Yes Status: Chronic Qualifiers: Substance use status: uncomplicated Qualified Code(s): F14.20 - Cocaine dependence, uncomplicated (3) Nicotine dependence Current Visit: Yes Status: Chronic Qualifiers: Nicotine product type: cigarettes Substance use status: in withdrawal Qualified Code(s): F17.213 - Nicotine dependence, cigarettes, with withdrawal (4) History of anemia Current Visit: Yes Status: Suspected (5) ADHD (attention deficit hyperactivity disorder) Current Visit: No Status: Chronic Qualifiers: Attention deficit-hyperactivity disorder type: unspecified Qualified Code(s): F90.9 - Attention-deficit hyperactivity disorder, unspecified type (6) Cannabis abuse Current Visit: No Status: Chronic (7) Cocaine abuse Current Visit: Yes Status: Chronic (8) Schizoaffective disorder Current Visit: Yes Status: Chronic Qualifiers: Schizoaffective disorder type: unspecified Qualified Code(s): F25.9 - Schizoaffective disorder, unspecified (9) Seizure Current Visit: No Status: Inactive - AMA Did Patient Leave Against Medical Advice: No
[2016-11-22 10:38] VITALS: BP 154/71; PULSE 74; TEMP 96.8
[2016-11-22] MEDS: PRENATAL VITAMINS W/ FOLIC ACID TABLET (FP) PO SCH (10:44)
[2016-11-22] MEDS: NICOTINE 14 MG/24 HOURS TOPICAL PATCH TD SCH (10:45)
== END 2016-11-22 10:53 | disposition other institution (70) | DRG 774 ==
LOC: YASAS 11:02 → Y6N 14:18
PROVIDERS: ADMIT Internal Medicine Addiction Medicine; ATTEND Internal Medicine Addiction Medicine
PROC: HZ2ZZZZ Detoxification Services for Substance Abuse Treatment (ICD-10-PCS; principal; 2016-11-18)
DX: F10.230 Alcohol dependence with withdrawal, uncomplicated (principal); F14.20 Cocaine dependence, uncomplicated; F12.10 Cannabis abuse, uncomplicated; F17.213 Nicotine dependence, cigarettes, with withdrawal; F90.9 Attention-deficit hyperactivity disorder, unspecified type; F25.9 Schizoaffective disorder, unspecified; Z86.69 Personal history of other diseases of the nervous system and sense organs; Z86.2 Personal history of diseases of the blood and blood-forming organs and certain disorders involving the immune mechanism; Z87.898 Personal history of other specified conditions; Z59.0 Homelessness
CPT/HCPCS: 36415; 80053; 81003; 81015; 82947; 85027; 86593; 93005; 93010

== ENCOUNTER 2016-11-22 10:57 | Inpatient (IN) | payer OTHER ==
[2016-11-22 11:24] VITALS: BMI 24.7
[2016-11-22] MEDS ORDERED: P-EPHED 60MG/TRIPROLIDI 2.5MG TABLET PO PRN (13:12)
[2016-11-22] MEDS ORDERED: MAGNESIUM HYDROX 2400MG/30ML ORAL SUSPENSION 30 ML CUP PO PRN (13:12)
[2016-11-22] MEDS ORDERED: LOPERAMIDE HCL 2 MG CAPSULE PO PRN (13:12)
[2016-11-22] MEDS ORDERED: hydrOXYzine PAMOATE 50 MG CAPSULE (FP) PO PRN (13:12)
[2016-11-22] MEDS ORDERED: ACETAMINOPHEN 325 MG TABLET (FP) PO PRN (13:12)
[2016-11-22] MEDS ORDERED: MAGNESIUM CITRATE 300 ML BOTTLE PO PRN (13:12)
[2016-11-22] MEDS ORDERED: guaiFENesin/D-METHORPHAN HB 10 ML UNIT-DOSE CUPS PO PRN (13:12)
[2016-11-22] MEDS ORDERED: MENTHOL/PHENOL 1 EACH UD MM PRN (13:12)
[2016-11-22] MEDS: risperiDONE 2 MG TABLET PO SCH (21:17)
[2016-11-22] MEDS: diphenhydrAMINE HCL 50 MG CAPSULE PO PRN (21:17)
[2016-11-22] MEDS: THIAMINE HCL 100 MG TABLET (FP) PO SCH (21:17)
[2016-11-23] MEDS: PRENATAL VITAMINS W/ FOLIC ACID TABLET (FP) PO SCH (10:00)
[2016-11-23] MEDS: NICOTINE 21 MG/24 HOURS TOPICAL PATCH TD SCH (10:01)
[2016-11-23] MEDS: busPIRone HCL 10 MG TABLET (FP) PO SCH (10:01)
[2016-11-23] MEDS: NICOTINE POLACRILEX 4 MG GUM BUC PRN (10:02)
[2016-11-23] MEDS: risperiDONE 2 MG TABLET PO SCH (21:51)
[2016-11-23] MEDS: THIAMINE HCL 100 MG TABLET (FP) PO SCH (21:51)
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
[2016-11-24] MEDS: PRENATAL VITAMINS W/ FOLIC ACID TABLET (FP) PO SCH (10:33)
[2016-11-24] MEDS: busPIRone HCL 10 MG TABLET (FP) PO SCH (10:33)
[2016-11-24] MEDS: NICOTINE POLACRILEX 4 MG GUM BUC PRN (10:33)
[2016-11-24] MEDS: NICOTINE 21 MG/24 HOURS TOPICAL PATCH TD SCH (10:33)
[2016-11-24] MEDS: MAG HYDROX/AL HYDROX/SIMETH 30 ML UNIT-DOSE CUP PO PRN ×2 (13:19→21:54)
[2016-11-24] MEDS: IBUPROFEN 400 MG TABLET (FP) PO PRN (21:18)
[2016-11-24] MEDS: THIAMINE HCL 100 MG TABLET (FP) PO SCH (21:54)
[2016-11-24] MEDS: risperiDONE 2 MG TABLET PO SCH (21:55)
[2016-11-25] MEDS: NICOTINE 21 MG/24 HOURS TOPICAL PATCH TD SCH (10:07)
[2016-11-25] MEDS: busPIRone HCL 10 MG TABLET (FP) PO SCH (10:07)
[2016-11-25] MEDS: PRENATAL VITAMINS W/ FOLIC ACID TABLET (FP) PO SCH (10:07)
[2016-11-25] MEDS: MAG HYDROX/AL HYDROX/SIMETH 30 ML UNIT-DOSE CUP PO PRN (19:58)
[2016-11-25] MEDS: diphenhydrAMINE HCL 50 MG CAPSULE PO PRN ×2 (21:14→23:54)
[2016-11-25] MEDS: IBUPROFEN 400 MG TABLET (FP) PO PRN (21:14)
[2016-11-25] MEDS: THIAMINE HCL 100 MG TABLET (FP) PO SCH (21:15)
[2016-11-25] MEDS: risperiDONE 2 MG TABLET PO SCH (21:44)
[2016-11-26 06:46] VITALS: BP 125/74; PULSE 74; TEMP 98.4
[2016-11-26] MEDS: PRENATAL VITAMINS W/ FOLIC ACID TABLET (FP) PO SCH (09:16)
[2016-11-26] MEDS: busPIRone HCL 10 MG TABLET (FP) PO SCH (09:17)
[2016-11-26] MEDS: NICOTINE 21 MG/24 HOURS TOPICAL PATCH TD SCH (09:18)
--- NOTE | 2016-11-26 09:47 | PN ---
Psychiatric Progress Note Vital Signs: Vital Signs Period Temp Pulse Resp BP Sys/[place] Pulse Ox Last 24 Hr 98.4 F 74 18-18 125/74 Date of Session: 11/26/16 Chief Complaint:: AMA Discharge Note HPI: Patient addressing Alcohol and Cocaine Dependence comorbid with Nicotine Dependence, Schizoaffective Disorder and ADHD Current Medications: Active Medications Generic Name Dose Route Start Last Admin Trade Name Freq PRN Reason Stop Dose Admin Acetaminophen 650 mg 11/22/16 13:12 Tylenol - PO Q4H PRN FEVER OR PAIN Al Hydroxide/Mg Hydroxide 30 ml 11/22/16 13:12 11/25/16 19:58 Mylanta Oral Suspension - PO 30 ml Q6H PRN Administration DYSPEPSIA Bupropion HCl 150 mg 11/23/16 10:00 11/26/16 09:17 Wellbutrin Xl - PO 150 mg DAILY MARY Administration Buspirone HCl 5 mg 11/23/16 10:00 11/26/16 09:17 Buspar - PO 5 mg DAILY MARY Administration Diphenhydramine HCl 50 mg 11/22/16 13:12 11/25/16 23:54 Benadryl - PO 50 mg HSMR1 PRN Administration FOR ITCHING Eucalyptus/Menthol/Phenol/Sorbitol 1 each 11/22/16 13:12 Cepastat Lozenge - MM Q4H PRN SORE THROAT Guaifenesin 10 ml 11/22/16 13:12 Robitussin Dm - PO Q6H PRN COUGH Hydroxyzine Pamoate 50 mg 11/22/16 13:12 Vistaril - PO Q4H PRN AGITATION Ibuprofen 400 mg 11/22/16 13:12 11/25/16 21:14 Motrin - PO 400 mg Q6H PRN Administration PAIN Loperamide HCl 4 mg 11/22/16 13:12 Imodium - PO Q6H PRN DIARRHEA Magnesium Hydroxide 30 ml 11/22/16 13:12 Milk Of Magnesia - PO DAILY PRN CONSTIPATION Nicotine 21 mg 11/23/16 10:00 11/26/16 09:18 Nicoderm Patch - TD Not Given DAILY MARY Nicotine Polacrilex 4 mg 11/22/16 13:12 11/24/16 10:33 Nicorette Gum - BUC 4 mg Q2H PRN Administration NICOTINE REPLACEMENT RX Multivit/Folic Acid/Iron 1 tab 11/23/16 10:00 11/26/16 09:16 Vitamins (Sjr) - PO 1 tab DAILY MARY Administration Pseudoephedrine/Triprolidine 1 combo 11/22/16 13:12 Actifed - PO TID PRN NASAL CONGESTION Risperidone 2 mg 11/22/16 22:00 11/25/16 21:44 Risperdal - PO 2 mg HS MARY Administration Thiamine HCl 100 mg 11/22/16 22:00 11/25/16 21:15 Vitamin B1 - PO 100 mg HS MARY Administration Current Side Effect: No Lab tests ordered: Yes Lab tests reviewed: Yes Provider note:: Patient has not completed this program. He wants to leave against medical advice citing housing issues. Told expert medical writer that some housing application came through and if he does not jump on it, he will lose that opportunity.. Patient was determined to leave despite encouragement to stay and complete this program.He is stable to leave AM Total face to face time:: 25 Mental Status Exam - Mental Status Exam Alert and Oriented to: Time, Place, Person Cognitive Function: Fair Patient Appearance: Well Groomed Mood: Hopeful, Euthymic Affect: Appropriate Patient Behavior: Cooperative Speech Pattern: Clear Voice Loudness: Normal Thought Process: Intact, Goal Oriented Thought Disorder: Not Present Hallucinations: Denies Suicidal Ideation: Denies Homicidal Ideation: Denies Insight/Judgement: Fair Sleep: Fair Appetite: Good Muscle strength/Tone: Normal Gait/Station: Normal Psychiatric Treatment Plan - Problem List (1) Alcohol dependence Current Visit: Yes (2) Cocaine dependence Current Visit: No Qualifiers: Substance use status: uncomplicated Qualified Code(s): F14.20 - Cocaine dependence, uncomplicated (3) Nicotine dependence Current Visit: No Qualifiers: Nicotine product type: cigarettes Substance use status: in withdrawal Qualified Code(s): F17.213 - Nicotine dependence, cigarettes, with withdrawal (4) Schizoaffective disorder Current Visit: No Qualifiers: Schizoaffective disorder type: unspecified Qualified Code(s): F25.9 - Schizoaffective disorder, unspecified (5) ADHD (attention deficit hyperactivity disorder) Current Visit: No Qualifiers: Attention deficit-hyperactivity disorder type: unspecified Qualified Code(s): F90.9 - Attention-deficit hyperactivity disorder, unspecified type Initial treatment plan: Patient is leaving AM
== END 2016-11-26 09:28 | disposition left against medical advice (07) | DRG 770 ==
LOC: YASAS 10:57 → Y3W 10:58
PROVIDERS: ADMIT Psychiatry & Neurology Psychiatry; ATTEND Psychiatry & Neurology Psychiatry
PROC: HZ42ZZZ Group Counseling for Substance Abuse Treatment, Cognitive-Behavioral (ICD-10-PCS; principal; 2016-11-22)
DX: F10.20 Alcohol dependence, uncomplicated (principal); F14.20 Cocaine dependence, uncomplicated; F17.213 Nicotine dependence, cigarettes, with withdrawal; F25.9 Schizoaffective disorder, unspecified; F90.9 Attention-deficit hyperactivity disorder, unspecified type; Z59.0 Homelessness

== ENCOUNTER 2017-01-11 08:31 | Inpatient (IN) | payer OTHER ==
[2017-01-11 10:40] VITALS: BMI 22.1
--- NOTE | 2017-01-11 13:11 | HP ---
CIWA Score - CIWA Score Nausea/Vomitin Muscle Tremors: 3 Anxiety: 3 Agitation: 3 Paroxysmal Sweats: 2 Orientation: 0-Oriented Tacttile Disturbances: 2-Mild Itch/Numbness/Burn Auditory Disturbances: 2-Mild Harshness/Frighten Visual Disturbances: 1-Very Mild Sensitivity Headache: 2-Mild CIWA-Ar Total Score: 21 Admission ROS BHS - HPI Chief Complaint: i need help to stop drinking alcohol and cocaine Allergies/Adverse Reactions: Allergies Allergy/AdvReac Type Severity Reaction Status Date / Time No Known Allergies Allergy Verified 01/11/17 11:20 History of Present Illness: this 41 years old male with alcohol and cocaine dependence,seeking detox,last treatment [facility]11/18/16 to 11/22/[facility] 11/22/16 to 11/27/16 syncope longest period of sobriety 3 months schizoaffectivedirorder - Ebola screening Have you traveled outside of the country in the last 21 days: No Have you had contact with anyone from an Ebola affected area: No Have you been sick,other than usual withdrawal symptoms: No - Review of Systems Constitutional: Loss of Appetite, Malaise, Night Sweats, Changes in sleep, Weakness, Unintentional Wgt. Loss EENT: reports: Nose Congestion Respiratory: reports: No Symptoms reported Cardiac: reports: No Symptoms Reported GI: reports: Nausea, Vomiting, Abdominal cramping : reports: No Symptoms Reported Musculoskeletal: reports: Back Pain, Muscle Pain Integumentary: reports: Dryness Neuro: reports: Headache, Tremors Endocrine: reports: No Symptoms Reported Hematology: reports: No Symptoms Reported Psychiatric: reports: No Sypmtoms Reported, Judgement Intact, Mood/Affect Appropiate, Orientated x3, other (schizoaffective disorder) Patient History - Patient Medical History Hx Anemia: Yes (NO CURRENT MED) Hx Asthma: No Hx Chronic Obstructive Pulmonary Disease (COPD): No Hx Cancer: No Hx Cardiac Disorders: No Hx Congestive Heart Failure: No Hx Hypertension: No Hx Hypercholesterolemia: No Hx Pacemaker: No HX Cerebrovascular Accident: No Hx Seizures: No Hx Dementia: No Hx Diabetes: No Hx Gastrointestinal Disorders: No Hx Liver Disease: No Hx Genitourinary Disorders: No Hx Sexually Transmitted Disorders: No Hx Renal Disease (ESRD): No Hx Thyroid Disease: No Hx Human Immunodeficiency Virus (HIV): No (last 04/07 last negative hx) Hx Hepatitis C: No Hx Depression: Yes Hx Suicide Attempt: No Hx Bipolar Disorder: No Hx Schizophrenia: Yes Other Medical History: no suicidal,no homicidal - Patient Surgical History Past Surgical History: No Hx Neurologic Surgery: No Hx Cataract Extraction: No Hx Cardiac Surgery: No Hx Lung Surgery: No Hx Breast Surgery: No Hx Breast Biopsy: No Hx Abdominal Surgery: No Hx Appendectomy: No Hx Cholecystectomy: No Hx Genitourinary Surgery: No Hx Section: No Hx Orthopedic Surgery: No Anesthesia Reaction: No - PPD History Previous Implant?: Yes Documented Results: Negative w/proof Implanted On Prior [facility] Admission?: Yes Date: 11/20/16 Results: 0 mm PPD to be Administered?: No - Smoking Cessation Smoking history: Current every day smoker Have you smoked in the past 12 months: Yes Aproximately how many cigarettes per day: 20 Hx Chewing Tobacco Use: No Initiated information on smoking cessation: Yes 'Breaking Loose' booklet given: 01/11/17 - Substance & Tx. History Hx Alcohol Use: Yes Hx Substance Use: Yes Substance Use Type: Alcohol, Cocaine Hx Substance Use Treatment: Yes (last [facility] 11/18/16 to 11/22/16,rehab [facility] 11/22 to 11/26/16) - Substances Abused Alcohol Route: Oral Frequency: Daily Amount used: FIFTH OF VODKA Age of first use: 20 Date of Last Use: 01/10/17 Cocaine Route: Smoking Frequency: Daily Amount used: 1 GRAM Age of first use: 20 Date of Last Use: 01/09/17 Family Disease History - Family Disease History Family Disease History: Diabetes: Grandparent, Other: Father (alcohol, cocaine) , Mother (alcohol, cocaine) Admission Physical Exam S - Vital Signs Vital Signs: Vital Signs - 24 hr 01/11/17 10:38 Temperature 97.3 F L Pulse Rate 62 Respiratory 18 Rate Blood Pressure 113/71 - Physical General Appearance: Yes: Moderate Distress, Tremorous, Irritable, Sweating, Anxious HEENTM: Yes: Normal ENT Inspection, PIERCE Respiratory: Yes: Lungs Clear, Normal Breath Sounds, No Respiratory Distress Neck: Yes: Within Normal Limits, Supple, Trachea in good position Breast: Yes: Within Normal Limits Cardiology: Yes: Within Normal Limits, Regular Rhythm, Regular Rate, S1, S2 Abdominal: Yes: Within Normal Limits, Normal Bowel Sounds, Non Tender, Flat, Soft Genitourinary: Yes: Within Normal Limits Back: Yes: Muscle Spasm Musculoskeletal: Yes: Back pain, Muscle Pain Extremities: Yes: Normal Range of Motion, Tremors Neurological: Yes: [facility] II-XII NML intact, Alert, Motor Strength 5/5 Integumentary: Yes: Dry Lymphatic: Yes: Within Normal Limits - Diagnostic (1) Alcohol dependence with uncomplicated withdrawal Current Visit: Yes Status: Acute (2) Cocaine dependence Current Visit: Yes Status: Acute Qualifiers: Substance use status: uncomplicated Qualified Code(s): F14.20 - Cocaine dependence, uncomplicated; F14.20 - Cocaine dependence, uncomplicated; F14.20 - Cocaine dependence, uncomplicated (3) Nicotine dependence Current Visit: Yes Status: Acute Qualifiers: Nicotine product type: cigarettes Substance use status: in withdrawal Qualified Code(s): F17.213 - Nicotine dependence, cigarettes, with withdrawal; F17.213 - Nicotine dependence, cigarettes, with withdrawal (4) Schizoaffective disorder Current Visit: No Status: Chronic Qualifiers: Schizoaffective disorder type: unspecified Qualified Code(s): F25.9 - Schizoaffective disorder, unspecified; F25.9 - Schizoaffective disorder, unspecified; F25.9 - Schizoaffective disorder, unspecified; F25.9 - Schizoaffective disorder, unspecified Comment: History.On medications.Non-adherent to OPD care. (5) Syncope Current Visit: Yes Status: Acute Cleared for Admission [facility] - Detox or Rehab [facility] Level of Care: Medically Managed Detox Regimen/Protocol: Librium [facility] Breath Alcohol Content Breath Alcohol Content: 0 Urine Drug Screen - Results Drug Screen Negative: No Urine Drug Screen Results: MINDY-Cocaine
[2017-01-11] MEDS ORDERED: MAGNESIUM CITRATE 300 ML BOTTLE PO PRN (13:25)
[2017-01-11] MEDS ORDERED: MENTHOL/PHENOL 1 EACH UD MM PRN (13:25)
[2017-01-11] MEDS ORDERED: MAG HYDROX/AL HYDROX/SIMETH 30 ML UNIT-DOSE CUP PO PRN (13:25)
[2017-01-11] MEDS ORDERED: diphenhydrAMINE HCL 50 MG CAPSULE PO PRN (13:25)
[2017-01-11] MEDS ORDERED: hydrOXYzine PAMOATE 25 MG CAPSULE (FP) PO PRN (13:25)
[2017-01-11] MEDS ORDERED: MAGNESIUM HYDROX 2400MG/30ML ORAL SUSPENSION 30 ML CUP PO PRN (13:25)
[2017-01-11] MEDS ORDERED: ACETAMINOPHEN 325 MG TABLET (FP) PO PRN (13:25)
[2017-01-11] MEDS ORDERED: P-EPHED 60MG/TRIPROLIDI 2.5MG TABLET PO PRN (13:25)
[2017-01-11] MEDS ORDERED: IBUPROFEN 400 MG TABLET (FP) PO PRN (13:25)
[2017-01-11] MEDS ORDERED: guaiFENesin/D-METHORPHAN HB 10 ML UNIT-DOSE CUPS PO PRN (13:25)
[2017-01-11] MEDS ORDERED: chlordiazePOXIDE HCL 25 MG CAPSULE PO PRN (14:52)
[2017-01-11] MEDS ORDERED: chlordiazePOXIDE HCL 25 MG CAPSULE PO ONE (14:59)
[2017-01-11] MEDS: NICOTINE 21 MG/24 HOURS TOPICAL PATCH TD SCH (15:00)
--- NOTE | 2017-01-11 15:36 | CONSULT ---
[facility] Psychiatric Consult - Data Date of interview: 01/11/17 Admission source: [facility] Identifying data: One of multiple admissions to [facility] for this 41 y/o AA male seeking detox treatment on for alcohol and cocaine dependence.Patient is single,a father of six (admitted to four dependents in a previous encounter with this selling underwriter),homeless,unemployed and currently deprived of financial assistance. Substance Abuse History: Discussed in this interview.Addictions are confirmed by patient. Smoking history: Current every day smoker. Have you smoked in the past 12 months: Yes. Aproximately how many cigarettes per day: 20. Hx Chewing Tobacco Use: No. Initiated information on smoking cessation: Yes. 'Breaking Loose' booklet given: 01/11/17. - Substance & Tx. History. Hx Alcohol Use: Yes. Hx Substance Use: Yes. Substance Use Type: Alcohol, Cocaine. Hx Substance Use Treatment: Yes (last [facility] 11/18/16 to 11/22/16,rehab [facility] to 11/26/16). - Substances Abused. Alcohol. Route: Oral. Frequency: Daily. Amount used: FIFTH OF VODKA. Age of first use: 20. Date of Last Use: 01/10/17. Cocaine. Route: Smoking. Frequency: Daily. Amount used: 1 GRAM. Age of first use: 20. Date of Last Use: 01/09/17 Medical History: No medical problems reported. Psychiatric History: Patient is moderately sedated and not able to provide an exhaustive history.Mr Quiles,in this interview,denies OPD care (non-adherent to medications) and endorses only one admission to [facility].There,a more accurate history is extracted from records.As follows : " extensive history of psychiatric illness.Early onset od emotional disturbances (age 10-12) and behavioral issues.Diagnosed with ADHD (treated with psychostimulants) and later re-diagnosed with Schizoaffective Disorder.Patient admits to a history of multiple psychiatric hospitalizations.Mr Quiles is known to [facility] and other facilities ([place]).Has been prescribed various medications which include risperdal,wellbutrin,buspar,vistaril and seroquel.Patient reports current OPD care at the [facility] in [facility].Maintenance medications are reported to be seroquel and buspar (doses not recalled).Questionable adherence to psychiatric aftercare.Patient denies history of suicide attempts." End of selling underwriter's note of 08/26/16. Physical/Sexual Abuse/Trauma History: Not discussed. Additional Comment: Urine Drug Screen Results: MINDY-Cocaine.Noted. Mental Status Exam - Mental Status Exam Alert and Oriented to: Place, Person Cognitive Function: Impaired (moderately) Patient Appearance: Disheveled Mood: Withdrawn Affect: Constricted Patient Behavior: Sedated (moderately), Fatigued Speech Pattern: Delayed, Slurred Voice Loudness: Moderately Soft/Quiet Thought Process: Disorganized, Disoriented Thought Disorder: Bizarre Hallucinations: Denies Suicidal Ideation: Denies Homicidal Ideation: Denies Insight/Judgement: Poor Sleep: Well Appetite: Good Gait/Station: Other (not observed ; patient in bed through interview) Psychiatric Findings - Problem List ([place] 1, 2,3) (1) Alcohol dependence with uncomplicated withdrawal Current Visit: Yes Status: Acute (2) Cocaine dependence Current Visit: Yes Status: Acute Qualifiers: Substance use status: uncomplicated Qualified Code(s): F14.20 - Cocaine dependence, uncomplicated; F14.20 - Cocaine dependence, uncomplicated; F14.20 - Cocaine dependence, uncomplicated (3) Nicotine dependence Current Visit: Yes Status: Acute Qualifiers: Nicotine product type: cigarettes Substance use status: in withdrawal Qualified Code(s): F17.213 - Nicotine dependence, cigarettes, with withdrawal; F17.213 - Nicotine dependence, cigarettes, with withdrawal (4) Substance induced mood disorder Current Visit: Yes Status: Acute (5) Schizoaffective disorder Current Visit: No Status: Chronic Qualifiers: Schizoaffective disorder type: unspecified Qualified Code(s): F25.9 - Schizoaffective disorder, unspecified; F25.9 - Schizoaffective disorder, unspecified; F25.9 - Schizoaffective disorder, unspecified; F25.9 - Schizoaffective disorder, unspecified Comment: History.On medications.Non-adherent to OPD care. - Initial Treatment Plan Initial Treatment Plan: Psychoeducation will be initiated at another session ( when fully awake).Detoxification in progress.No recent pharmacy claims.No additional medications (only detox regimen).Observation.
[2017-01-11 16:12] LABS: MCH 30.6 pg (25.7-33.7); MCHC 33.2 g/dl (32.0-35.9); MEAN CELL VOLUME 91.9 fl (80-96); PLATELET COUNT 262 K/MM3 (134-434); RDW 14.9 % (11.9-15.9); WHITE BLOOD COUNT 4.6 K/mm3 (4.0-10.0)
[2017-01-11 16:41] LABS: ANION GAP 11 (8-16); CO2 30 mmol/L (21-32); CREATININE 1.3 mg/dL (0.7-1.3); GLUCOSE,RANDOM 106 mg/dL (74-106); SGOT/AST 15 U/L (15-37); SGPT/ALT 19 U/L (12-78)
[2017-01-11 16:42] LABS: ALK PHOS 72 U/L (45-117); BILIRUBIN,TOTAL 0.5 mg/dL (0.2-1.0); TOT PROT 7.7 g/dl (6.4-8.2)
[2017-01-11 17:17] LABS: URINE APPEARANCE SLCLOUDY; URINE BILIRUBIN NEGATIVE (NEGATIVE); URINE BLOOD NEGATIVE (NEGATIVE); URINE COLOR DKYELLOW; URINE GLUCOSE (UA) NEGATIVE (NEGATIVE); URINE KETONE TRACE (NEGATIVE); URINE NITRITE NEGATIVE (NEGATIVE)
[2017-01-11 17:24] LABS: URINE PROTEIN 1+ (NEGATIVE)
[2017-01-11] MEDS: chlordiazePOXIDE HCL 25 MG CAPSULE PO SCH ×2 (17:34→22:18)
[2017-01-11 17:36] LABS: URINE BACTERIA RARE /hpf (NONE SEEN); URINE MUCUS MANY; URINE RBC 10 /hpf (0-3); URINE WBC 4 /hpf (3-5)
[2017-01-11 21:21] LABS: URINE LEUK ESTERASE Negative (NEGATIVE)
[2017-01-11] MEDS: THIAMINE HCL 100 MG TABLET (FP) PO SCH (22:18)
[2017-01-12] MEDS: chlordiazePOXIDE HCL 25 MG CAPSULE PO SCH ×4 (05:59→22:14)
[2017-01-12] MEDS: NICOTINE 21 MG/24 HOURS TOPICAL PATCH TD SCH (10:51)
[2017-01-12] MEDS: PRENATAL VITAMINS W/ FOLIC ACID TABLET (FP) PO SCH (10:51)
--- NOTE | 2017-01-12 11:09 | PN ---
[facility] CIWA - CIWA Score Nausea/Vomitin-No Nausea/No Vomiting Muscle Tremors: 4-Moderate,w/Arms Extend Anxiety: 4-Mod. Anxious/Guarded Agitation: 4-Moderately Restless Paroxysmal Sweats: 1-Minimal Palms Moist Orientation: 0-Oriented Tacttile Disturbances: 3-Moderate Itch/Numb/Burn Auditory Disturbances: 0-None Visual Disturbances: 0-None Headache: 0-None Present CIWA-Ar Total Score: 16 BHS Progress Note (SOAP) Subjective: ANXIETY,SWEATS,FATIGUE. Objective: 01/12/17 11:08 Vital Signs Temperature 98.0 F 01/12/17 09:36 Pulse Rate 76 01/12/17 09:36 Respiratory Rate 18 01/12/17 09:36 Blood Pressure 130/85 01/12/17 09:36 O2 Sat by Pulse Oximetry (%) Laboratory Last Values WBC 4.6 K/mm3 (4.0-10.0) 01/11/17 13:20 RBC 4.48 M/mm3 (4.00-5.60) 01/11/17 13:20 Hgb 13.7 GM/dL (11.7-16.9) 01/11/17 13:20 Hct 41.2 % (35.4-49) 01/11/17 13:20 MCV 91.9 fl (80-96) 01/11/17 13:20 MCH 30.6 pg (25.7-33.7) 01/11/17 13:20 MCHC 33.2 g/dl (32.0-35.9) 01/11/17 13:20 RDW 14.9 % (11.9-15.9) 01/11/17 13:20 Plt Count 262 K/MM3 (134-434) D 01/11/17 13:20 MPV 9.0 fl (7.5-11.1) 01/11/17 13:20 Sodium 138 mmol/L (136-145) 01/11/17 13:20 Potassium 4.0 mmol/L (3.5-5.1) 01/11/17 13:20 Chloride 97 mmol/L (98-107) L 01/11/17 13:20 Carbon Dioxide 30 mmol/L (21-32) 01/11/17 13:20 Anion Gap 11 (8-16) 01/11/17 13:20 BUN 21 mg/dL (7-18) H D 01/11/17 13:20 Creatinine 1.3 mg/dL (0.7-1.3) D 01/11/17 13:20 Creat Clearance w eGFR > 60 (>60) 01/11/17 13:20 Random Glucose 106 mg/dL (74-106) D 01/11/17 13:20 Calcium 9.0 mg/dL (8.5-10.1) 01/11/17 13:20 Total Bilirubin 0.5 mg/dL (0.2-1.0) 01/11/17 13:20 AST 15 U/L (15-37) D 01/11/17 13:20 ALT 19 U/L (12-78) 01/11/17 13:20 Alkaline Phosphatase 72 U/L (45-117) 01/11/17 13:20 Total Protein 7.7 g/dl (6.4-8.2) 01/11/17 13:20 Albumin 4.0 g/dl (3.4-5.0) 01/11/17 13:20 Urine Color Dkyellow 01/11/17 15:30 Urine Appearance Slcloudy 01/11/17 15:30 Urine pH 5.0 (5.0-8.0) 01/11/17 15:30 Ur Specific [place] >= 1.030 (1.005-1.025) H 01/11/17 15:30 Urine Protein 1+ (NEGATIVE) H 01/11/17 15:30 Urine Glucose (UA) Negative (NEGATIVE) 01/11/17 15:30 Urine Ketones Trace (NEGATIVE) H 01/11/17 15:30 Urine Blood Negative (NEGATIVE) 01/11/17 15:30 Urine Nitrite Negative (NEGATIVE) 01/11/17 15:30 Urine Bilirubin Negative (NEGATIVE) 01/11/17 15:30 Urine Urobilinogen 2.0 mg/dL (0.2-1.0) 01/11/17 15:30 Ur Leukocyte Esterase Negative (NEGATIVE) 01/11/17 15:30 Urine RBC 10 /hpf (0-3) 01/11/17 15:30 Urine WBC 4 /hpf (3-5) 01/11/17 15:30 Ur Epithelial Cells Rare /hpf (FEW) 01/11/17 15:30 Urine Bacteria Rare /hpf (NONE SEEN) 01/11/17 15:30 Urine Mucus Many 01/11/17 15:30 Assessment: 01/12/17 11:08 WITHDRAWAL SX Plan: CONTINUE DETOX
[2017-01-12] MEDS ORDERED: ONDANSETRON *ODT* 4 MG TABLET SL ONE (18:45)
[2017-01-12] MEDS ORDERED: RANITIDINE HCL 150 MG TABLET (FP) PO ONE (19:00)
--- NOTE | 2017-01-12 20:34 | EKG ---
Test Reason : Blood Pressure : / mmHG Vent. Rate : 065 BPM Atrial Rate : 065 BPM P-R Int : 164 ms QRS Dur : 096 ms QT Int : 438 ms P-R-T Axes : 072 075 075 degrees QTc Int : 455 ms NORMAL SINUS RHYTHM POSSIBLE LEFT ATRIAL ENLARGEMENT SEPTAL INFARCT , AGE UNDETERMINED CANNOT RULE OUT ABNORMAL ECG WHEN COMPARED WITH ECG OF 18-NOV-2016 14:30, NO SIGNIFICANT CHANGE WAS FOUND Confirmed by ENEDELIA KRAUS MD ([id number]) on 01/12/2017 8:34:32 PM Referred By: Confirmed By:ENEDELIA KRAUS MD
[2017-01-12] MEDS: RANITIDINE HCL 150 MG TABLET (FP) PO SCH (22:14)
[2017-01-12] MEDS: THIAMINE HCL 100 MG TABLET (FP) PO SCH (22:14)
[2017-01-13] MEDS: chlordiazePOXIDE HCL 25 MG CAPSULE PO SCH ×2 (06:08→10:46)
[2017-01-13] MEDS: RANITIDINE HCL 150 MG TABLET (FP) PO SCH ×2 (10:46→22:10)
[2017-01-13] MEDS: NICOTINE 21 MG/24 HOURS TOPICAL PATCH TD SCH (10:46)
[2017-01-13] MEDS: PRENATAL VITAMINS W/ FOLIC ACID TABLET (FP) PO SCH (10:46)
[2017-01-13] MEDS ORDERED: ONDANSETRON *ODT* 4 MG TABLET SL PRN (11:00)
--- NOTE | 2017-01-13 13:05 | PN ---
S CIWA - CIWA Score Nausea/Vomitin Muscle Tremors: None Anxiety: 4-Mod. Anxious/Guarded Agitation: 2 Paroxysmal Sweats: No Perspiration Orientation: 2-Disoriented Date<2 days Tacttile Disturbances: 2-Mild Itch/Numbness/Burn Auditory Disturbances: 0-None Visual Disturbances: 1-Very Mild Sensitivity Headache: 0-None Present CIWA-Ar Total Score: 16 BHS Progress Note (SOAP) Subjective: Interrupted sleep, Stomach cramping, Vomiting, Diarrhea. Objective: PT. A & O X 2 (DISORIENTED ABOUT DAY/ DATE). NO ACUTE DISTRESS. 01/13/17 13:03 Vital Signs Temperature 98.2 F 01/13/17 09:44 Pulse Rate 84 01/13/17 09:44 Respiratory Rate 18 01/13/17 09:44 Blood Pressure 122/81 01/13/17 09:44 O2 Sat by Pulse Oximetry (%) Laboratory Tests 01/11/17 01/11/17 01/11/17 13:20 13:20 13:20 WBC 4.6 RBC 4.48 Hgb 13.7 Hct 41.2 MCV 91.9 MCH 30.6 MCHC 33.2 RDW 14.9 Plt Count 262 D MPV 9.0 Sodium 138 Potassium 4.0 Chloride 97 L Carbon Dioxide 30 Anion Gap 11 BUN 21 H D Creatinine 1.3 D Creat Clearance w eGFR > 60 Random Glucose 106 D Calcium 9.0 Total Bilirubin 0.5 AST 15 D ALT 19 Alkaline Phosphatase 72 Total Protein 7.7 Albumin 4.0 Urine Color Urine Appearance Urine pH Ur Specific [place] Urine Protein Urine Glucose (UA) Urine Ketones Urine Blood Urine Nitrite Urine Bilirubin Urine Urobilinogen Ur Leukocyte Esterase Urine RBC Urine WBC Ur Epithelial Cells Urine Bacteria Urine Mucus RPR Titer Nonreactive 01/11/17 15:30 WBC RBC Hgb Hct MCV MCH MCHC RDW Plt Count MPV Sodium Potassium Chloride Carbon Dioxide Anion Gap BUN Creatinine Creat Clearance w eGFR Random Glucose Calcium Total Bilirubin AST ALT Alkaline Phosphatase Total Protein Albumin Urine Color Dkyellow Urine Appearance Slcloudy Urine pH 5.0 Ur Specific [place] >= 1.030 H Urine Protein 1+ H Urine Glucose (UA) Negative Urine Ketones Trace H Urine Blood Negative Urine Nitrite Negative Urine Bilirubin Negative Urine Urobilinogen 2.0 Ur Leukocyte Esterase Negative Urine RBC 10 Urine WBC 4 Ur Epithelial Cells Rare Urine Bacteria Rare Urine Mucus Many RPR Titer LABS NOTED. Assessment: 01/13/17 13:04 WITHDRAWAL SYMPTOMS. Plan: CONTINUE DETOX. PRN IMMODIUM FOR DIARRHEA. PRN ZOFRAN SL FOR NAUSEA. INCREASE DAILY PO FLUID INTAKE.
[2017-01-13] MEDS: chlordiazePOXIDE 5 MG CAPSULE PO SCH ×2 (17:17→22:07)
[2017-01-13] MEDS: LOPERAMIDE HCL 2 MG CAPSULE PO PRN (21:35)
[2017-01-13] MEDS: THIAMINE HCL 100 MG TABLET (FP) PO SCH (22:07)
[2017-01-14] MEDS: LOPERAMIDE HCL 2 MG CAPSULE PO PRN ×2 (05:49→17:05)
[2017-01-14] MEDS: chlordiazePOXIDE 5 MG CAPSULE PO SCH ×2 (05:49→10:53)
[2017-01-14] MEDS: PRENATAL VITAMINS W/ FOLIC ACID TABLET (FP) PO SCH (10:53)
[2017-01-14] MEDS: NICOTINE 21 MG/24 HOURS TOPICAL PATCH TD SCH (10:53)
[2017-01-14] MEDS: RANITIDINE HCL 150 MG TABLET (FP) PO SCH ×2 (10:54→22:36)
--- NOTE | 2017-01-14 12:34 | PN ---
BHS Progress Note (SOAP) Subjective: Nausea, Diarrhea, Fatigue, Interrupted sleep, H/A, Body Aches. Objective: PT. A & O X 3. NO ACUTE DISTRESS. PATIENT DENIES CHEST PAIN. 01/14/17 12:31 Vital Signs Temperature 97.5 F L 01/14/17 09:07 Pulse Rate 71 01/14/17 09:07 Respiratory Rate 20 01/14/17 09:07 Blood Pressure 114/73 01/14/17 09:07 O2 Sat by Pulse Oximetry (%) Laboratory Tests 01/11/17 01/11/17 01/11/17 13:20 13:20 13:20 WBC 4.6 RBC 4.48 Hgb 13.7 Hct 41.2 MCV 91.9 MCH 30.6 MCHC 33.2 RDW 14.9 Plt Count 262 D MPV 9.0 Sodium 138 Potassium 4.0 Chloride 97 L Carbon Dioxide 30 Anion Gap 11 BUN 21 H D Creatinine 1.3 D Creat Clearance w eGFR > 60 Random Glucose 106 D Calcium 9.0 Total Bilirubin 0.5 AST 15 D ALT 19 Alkaline Phosphatase 72 Total Protein 7.7 Albumin 4.0 Urine Color Urine Appearance Urine pH Ur Specific [place] Urine Protein Urine Glucose (UA) Urine Ketones Urine Blood Urine Nitrite Urine Bilirubin Urine Urobilinogen Ur Leukocyte Esterase Urine RBC Urine WBC Ur Epithelial Cells Urine Bacteria Urine Mucus RPR Titer Nonreactive 01/11/17 15:30 WBC RBC Hgb Hct MCV MCH MCHC RDW Plt Count MPV Sodium Potassium Chloride Carbon Dioxide Anion Gap BUN Creatinine Creat Clearance w eGFR Random Glucose Calcium Total Bilirubin AST ALT Alkaline Phosphatase Total Protein Albumin Urine Color Dkyellow Urine Appearance Slcloudy Urine pH 5.0 Ur Specific [place] >= 1.030 H Urine Protein 1+ H Urine Glucose (UA) Negative Urine Ketones Trace H Urine Blood Negative Urine Nitrite Negative Urine Bilirubin Negative Urine Urobilinogen 2.0 Ur Leukocyte Esterase Negative Urine RBC 10 Urine WBC 4 Ur Epithelial Cells Rare Urine Bacteria Rare Urine Mucus Many RPR Titer LABS NOTED. Assessment: 01/14/17 12:32 WITHDRAWAL SYMPTOMS. Plan: CONTINUE DETOX.
[2017-01-14] MEDS: chlordiazePOXIDE HCL 10 MG CAPSULE PO SCH ×2 (17:03→22:36)
[2017-01-14] MEDS: THIAMINE HCL 100 MG TABLET (FP) PO SCH (22:36)
[2017-01-15] MEDS: LOPERAMIDE HCL 2 MG CAPSULE PO PRN (01:13)
[2017-01-15 06:07] VITALS: BP 118/64; PULSE 73; TEMP 97.5
[2017-01-15] MEDS: chlordiazePOXIDE HCL 10 MG CAPSULE PO SCH (07:09)
--- NOTE | 2017-01-15 17:50 | DS ---
[facility] Detox Discharge Summary Admission Date: 01/11/17 Discharge Date: 01/15/17 - History Present History: Alcohol Dependence, Cocaine Dependence Additional Comments: PATIENT GOING [facility]. PATIENT WAS DISCHARGED FROM DETOX UNIT IN STABLE MEDICAL CONDITION. Pertinent Past History: Schizoaffective Disorder, History of Anemia, History of Syncope, Nicotine Dependence. - Physical Exam Results Vital Signs: Vital Signs Temperature 97.5 F L 01/15/17 06:06 Pulse Rate 73 01/15/17 06:06 Respiratory Rate 18 01/15/17 06:06 Blood Pressure 118/64 01/15/17 06:06 O2 Sat by Pulse Oximetry (%) Pertinent Admission Physical Exam Findings: WITHDRAWAL SYMPTOMS. Laboratory Tests 01/11/17 01/11/17 01/11/17 13:20 13:20 13:20 WBC 4.6 RBC 4.48 Hgb 13.7 Hct 41.2 MCV 91.9 MCH 30.6 MCHC 33.2 RDW 14.9 Plt Count 262 D MPV 9.0 Sodium 138 Potassium 4.0 Chloride 97 L Carbon Dioxide 30 Anion Gap 11 BUN 21 H D Creatinine 1.3 D Creat Clearance w eGFR > 60 Random Glucose 106 D Calcium 9.0 Total Bilirubin 0.5 AST 15 D ALT 19 Alkaline Phosphatase 72 Total Protein 7.7 Albumin 4.0 Urine Color Urine Appearance Urine pH Ur Specific [place] Urine Protein Urine Glucose (UA) Urine Ketones Urine Blood Urine Nitrite Urine Bilirubin Urine Urobilinogen Ur Leukocyte Esterase Urine RBC Urine WBC Ur Epithelial Cells Urine Bacteria Urine Mucus RPR Titer Nonreactive 01/11/17 15:30 WBC RBC Hgb Hct MCV MCH MCHC RDW Plt Count MPV Sodium Potassium Chloride Carbon Dioxide Anion Gap BUN Creatinine Creat Clearance w eGFR Random Glucose Calcium Total Bilirubin AST ALT Alkaline Phosphatase Total Protein Albumin Urine Color Dkyellow Urine Appearance Slcloudy Urine pH 5.0 Ur Specific [place] >= 1.030 H Urine Protein 1+ H Urine Glucose (UA) Negative Urine Ketones Trace H Urine Blood Negative Urine Nitrite Negative Urine Bilirubin Negative Urine Urobilinogen 2.0 Ur Leukocyte Esterase Negative Urine RBC 10 Urine WBC 4 Ur Epithelial Cells Rare Urine Bacteria Rare Urine Mucus Many RPR Titer LABS NOTED. - Treatment Hospital Course: Detox Protocol Followed, Detoxed Safely, Responded well, Discharged Condition Good Patient has Accepted a Rehab Referral to: PT [facility]ING [facility]. - Medication Discharge Medications: Ambulatory Orders Bupropion HCl [Wellbutrin Xl -] 150 mg PO DAILY #30 tab.sr.24h 01/12/15 Buspirone HCl [Buspar -] 5 mg PO DAILY #30 tablet 01/12/15 Risperidone [Risperdal] 2 mg PO HS #30 tablet 01/12/15 - Diagnosis (1) Alcohol dependence with uncomplicated withdrawal Status: Acute (2) Cocaine dependence Status: Acute Qualifiers: Substance use status: uncomplicated Qualified Code(s): F14.20 - Cocaine dependence, uncomplicated; F14.20 - Cocaine dependence, uncomplicated; F14.20 - Cocaine dependence, uncomplicated (3) Nicotine dependence Status: Chronic Qualifiers: Nicotine product type: cigarettes Substance use status: in withdrawal Qualified Code(s): F17.213 - Nicotine dependence, cigarettes, with withdrawal; F17.213 - Nicotine dependence, cigarettes, with withdrawal (4) Substance induced mood disorder Status: Acute (5) Schizoaffective disorder Status: Chronic Qualifiers: Schizoaffective disorder type: unspecified Qualified Code(s): F25.9 - Schizoaffective disorder, unspecified; F25.9 - Schizoaffective disorder, unspecified; F25.9 - Schizoaffective disorder, unspecified; F25.9 - Schizoaffective disorder, unspecified (6) History of anemia Status: Suspected - AMA Did Patient Leave Against Medical Advice: No
== END 2017-01-15 09:20 | disposition home or self-care (01) | DRG 774 ==
LOC: YASAS 08:31 → Y3N 11:59
PROVIDERS: ADMIT Internal Medicine; ATTEND Internal Medicine
PROC: HZ2ZZZZ Detoxification Services for Substance Abuse Treatment (ICD-10-PCS; principal; 2017-01-11)
DX: F10.230 Alcohol dependence with withdrawal, uncomplicated (principal); F14.20 Cocaine dependence, uncomplicated; F17.213 Nicotine dependence, cigarettes, with withdrawal; F19.24 Other psychoactive substance dependence with psychoactive substance-induced mood disorder; F25.9 Schizoaffective disorder, unspecified; Z86.2 Personal history of diseases of the blood and blood-forming organs and certain disorders involving the immune mechanism; Z86.79 Personal history of other diseases of the circulatory system
CPT/HCPCS: 36415; 80053; 81003; 81015; 85027; 86593; 93005; 93010

== ENCOUNTER 2017-11-05 10:59 | Inpatient (IN) | payer OTHER ==
[2017-11-05 18:58] VITALS: BMI 24.3
--- NOTE | 2017-11-05 20:31 | HP ---
CIWA Score - CIWA Score Nausea/Vomitin Muscle Tremors: 3 Anxiety: 3 Agitation: 0-Normal Activity Paroxysmal Sweats: 1-Minimal Palms Moist Orientation: 0-Oriented Tacttile Disturbances: 0-None Auditory Disturbances: 0-None Visual Disturbances: 1-Very Mild Sensitivity Headache: 4-Moderately Severe CIWA-Ar Total Score: 14 Admission [facility] Chief Complaint: Alcohol withdrawal symptoms Allergies/Adverse Reactions: Allergies Allergy/AdvReac Type Severity Reaction Status Date / Time Fish Containing Products Allergy Severe Hives Verified 11/05/17 20:25 No Known Drug Allergies Allergy Verified 11/05/17 20:25 NKDA Allergy Uncoded 11/05/17 20:25 History of Present Illness: 42 years old male with ten years history of alcohol dependence is seeking admission to detox. Patient has been in previous detox and reports six months of sobriety. Patient has medical history anemia, depression and anxiety. Denies suicide attempt and suicidal ideation at this time. Exam Limitations: No Limitations - Ebola screening Have you traveled outside of the country in the last 21 days: No Have you had contact with anyone from an Ebola affected area: No Have you been sick,other than usual withdrawal symptoms: No Do you have a fever: No - Review of Systems Constitutional: Chills, Malaise, Night Sweats EENT: reports: No Symptoms Reported Cardiac: reports: No Symptoms Reported GI: reports: Nausea, Poor Appetite, Poor Fluid Intake, Abdominal cramping : reports: No Symptoms Reported Musculoskeletal: reports: Back Pain, Joint Pain, Muscle Weakness Integumentary: reports: Dryness Neuro: reports: Headache, Numbness, Tremors Endocrine: reports: No Symptoms Reported Hematology: reports: No Symptoms Reported Psychiatric: reports: Orientated x3, Anxious, Depressed Other Systems: Reviewed and Negative Patient History - Patient Medical History Hx Anemia: Yes (NOT ON MEDICATION) Hx Asthma: No Hx Chronic Obstructive Pulmonary Disease (COPD): No Hx Cancer: No Hx Cardiac Disorders: No Hx Congestive Heart Failure: No Hx Hypertension: No Hx Hypercholesterolemia: No Hx Pacemaker: No HX Cerebrovascular Accident: No Hx Seizures: No Hx Dementia: No Hx Diabetes: No Hx Gastrointestinal Disorders: No Hx Liver Disease: No Hx Genitourinary Disorders: No Hx Sexually Transmitted Disorders: No Hx Renal Disease (ESRD): No Hx Thyroid Disease: No Hx Human Immunodeficiency Virus (HIV): No (NEGATIVE MAY 2017) Hx Hepatitis C: No Hx Depression: Yes (WELLBUTRIN, TRAZODONE) Hx Suicide Attempt: No (DENIES SUICIDE ATTEMPT AND SUICIDAL IDEATION AT THIS TIME) Hx Bipolar Disorder: No Hx Schizophrenia: No - Patient Surgical History Past Surgical History: No Hx Neurologic Surgery: No Hx Cataract Extraction: No Hx Cardiac Surgery: No Hx Lung Surgery: No Hx Abdominal Surgery: No Hx Appendectomy: No Hx Cholecystectomy: No Hx Genitourinary Surgery: No Hx Section: No Hx Orthopedic Surgery: No Anesthesia Reaction: No - PPD History Documented Results: Negative w/proof Implanted On Prior [facility] Admission?: Yes Date: 11/20/16 Results: 0 mm PPD to be Administered?: No - Reproductive History Patient is a Female of Child Bearing Age (11 -55 yrs old): No (MALE) - Smoking Cessation Smoking history: Current every day smoker Have you smoked in the past 12 months: Yes Aproximately how many cigarettes per day: 20 Hx Chewing Tobacco Use: No Initiated information on smoking cessation: Yes 'Breaking Loose' booklet given: 11/05/17 - Substance & Tx. History Hx Alcohol Use: Yes Hx Substance Use: Yes Substance Use Type: Cocaine Hx Substance Use Treatment: Yes ([facility]) - Substances Abused Alcohol Route: Oral Frequency: Daily Amount used: 3 [place] Age of first use: 20 Date of Last Use: 11/05/17 Cocaine Route: Smoking Frequency: Daily Amount used: 1 GRAM Age of first use: 20 Date of Last Use: 11/05/17 Family Disease History - Family Disease History Family Disease History: Diabetes: Grandparent, Other: Father (alcohol, cocaine) , Mother (alcohol, cocaine) Admission Physical Exam [facility] - Vital Signs Vital Signs: Vital Signs - 24 hr 11/05/17 18:55 Temperature 97.5 F L Pulse Rate 76 Respiratory 18 Rate Blood Pressure 111/56 - Physical General Appearance: Yes: Moderate Distress, Alcohol on Breath, Tremorous, Irritable, Sweating, Anxious HEENTM: Yes: EOMI, Normal ENT Inspection, Normocephalic, Normal Voice, PIERCE Respiratory: Yes: Lungs Clear, Normal Breath Sounds, No Respiratory Distress Neck: Yes: Supple Breast: Yes: Breast Exam Deferred Cardiology: Yes: Regular Rhythm, Regular Rate, S1, S2 Abdominal: Yes: Normal Bowel Sounds, Soft Genitourinary: Yes: Within Normal Limits Back: Yes: Normal Inspection Musculoskeletal: Yes: Back pain, Muscle Pain Extremities: Yes: Tremors 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 NML intact, Alert, Normal Mood/Affect Integumentary: Yes: Warm Lymphatic: Yes: Within Normal Limits - Diagnostic (1) Depression Current Visit: Yes Status: Acute Qualifiers: Major depression recurrence: recurrent (2) Alcohol dependence with uncomplicated withdrawal Current Visit: Yes Status: Chronic (3) Cocaine dependence Current Visit: Yes Status: Chronic Qualifiers: Substance use status: uncomplicated Qualified Code(s): F14.20 - Cocaine dependence, uncomplicated (4) Nicotine dependence Current Visit: Yes Status: Chronic Qualifiers: Nicotine product type: cigarettes Substance use status: in withdrawal Qualified Code(s): F17.213 - Nicotine dependence, cigarettes, with withdrawal (5) Anxiety Current Visit: Yes Status: Chronic (6) History of anemia Current Visit: Yes Status: Chronic Cleared for Admission [facility] - Detox or Rehab [facility] Level of Care: Medically Managed Detox Regimen/Protocol: Librium [facility] Breath Alcohol Content Breath Alcohol Content: 0 Urine Drug Screen - Results Drug Screen Negative: No Urine Drug Screen Results: MINDY-Cocaine
[2017-11-05] MEDS ORDERED: MAGNESIUM HYDROX 2400MG/30ML ORAL SUSPENSION 30 ML CUP PO PRN (20:40)
[2017-11-05] MEDS ORDERED: MAGNESIUM CITRATE 300 ML BOTTLE PO PRN (20:40)
[2017-11-05] MEDS ORDERED: ACETAMINOPHEN 325 MG TABLET (FP) PO PRN (20:40)
[2017-11-05] MEDS ORDERED: P-EPHED 60MG/TRIPROLIDI 2.5MG TABLET PO PRN (20:40)
[2017-11-05] MEDS ORDERED: MAG HYDROX/AL HYDROX/SIMETH 30 ML UNIT-DOSE CUP PO PRN (20:40)
[2017-11-05] MEDS ORDERED: IBUPROFEN 400 MG TABLET (FP) PO PRN (20:40)
[2017-11-05] MEDS ORDERED: MENTHOL/PHENOL 1 EACH UD MM PRN (20:40)
[2017-11-05] MEDS ORDERED: chlordiazePOXIDE HCL 25 MG CAPSULE PO PRN (20:40)
[2017-11-05] MEDS ORDERED: LOPERAMIDE HCL 2 MG CAPSULE PO PRN (20:40)
[2017-11-05] MEDS ORDERED: guaiFENesin/D-METHORPHAN HB 10 ML UNIT-DOSE CUPS PO PRN (20:40)
[2017-11-05] MEDS ORDERED: MELATONIN 5 MG TABLETS PO PRN (22:00)
[2017-11-06] MEDS: chlordiazePOXIDE HCL 25 MG CAPSULE PO SCH ×5 (00:58→23:30)
[2017-11-06] MEDS: THIAMINE HCL 100 MG TABLET (FP) PO SCH ×2 (00:58→23:30)
[2017-11-06 10:32] LABS: URINE APPEARANCE TURBID; URINE BILIRUBIN NEGATIVE (<2.0 mg/dL); URINE COLOR YELLOW; URINE GLUCOSE (UA) NEGATIVE (NEGATIVE); URINE KETONE NEGATIVE (NEGATIVE); URINE LEUK ESTERASE NEGATIVE (NEGATIVE); URINE NITRITE NEGATIVE (NEGATIVE); URINE UROBILINOGEN NEGATIVE mg/dL (0.2-1.0)
[2017-11-06 10:33] LABS: MCH 30.5 pg (25.7-33.7); MCHC 33.4 g/dl (32.0-35.9); MEAN CELL VOLUME 91.5 fl (80-96); MEAN PLT VOLUME 8.7 fl (7.5-11.1); PLATELET COUNT 222 K/MM3 (134-434); RBC 4.27 M/mm3 (4.00-5.60); RDW 15.7 % (11.9-15.9); WHITE BLOOD COUNT 4.6 K/mm3 (4.0-10.0)
[2017-11-06 10:37] LABS: URINE PROTEIN 1+ (NEGATIVE)
[2017-11-06 10:42] LABS: URINE BACTERIA MANY /hpf (NONE SEEN); URINE MUCUS RARE
[2017-11-06] MEDS: NICOTINE 14 MG/24 HOURS TOPICAL PATCH TD SCH (10:46)
[2017-11-06] MEDS: PRENATAL VITAMINS W/ FOLIC ACID TABLET (FP) PO SCH (10:46)
[2017-11-06 11:17] LABS: CHLORIDE 107 mmol/L (98-107); POTASSIUM 4.4 mmol/L (3.5-5.1); SODIUM 143 mmol/L (136-145)
[2017-11-06 11:23] LABS: ALBUMIN 3.3 g/dl (3.4-5.0); ALK PHOS 68 U/L (45-117); ANION GAP 6 (8-16); BILIRUBIN,TOTAL 0.2 mg/dL (0.2-1.0); BLOOD UREA NITROGEN 18 mg/dL (7-18); CALCIUM 8.7 mg/dL (8.5-10.1); CO2 30 mmol/L (21-32); CREATININE 1.2 mg/dL (0.7-1.3); GLUCOSE,RANDOM 93 mg/dL (74-106); SGOT/AST 9 U/L (15-37); SGPT/ALT 12 U/L (12-78); TOT PROT 6.6 g/dl (6.4-8.2)
--- NOTE | 2017-11-06 12:46 | PN ---
S CIWA - CIWA Score Nausea/Vomitin Muscle Tremors: 3 Anxiety: 3 Agitation: 3 Paroxysmal Sweats: 1-Minimal Palms Moist Orientation: 0-Oriented Tacttile Disturbances: 1-Very Mild Itch/Numbness Auditory Disturbances: 1-Very Mild Visual Disturbances: 0-None Headache: 2-Mild CIWA-Ar Total Score: 17 [facility] Progress Note (SOAP) Subjective: alert,irritable,anxious,interrupted sleep,tremor Objective: 11/06/17 12:41 Vital Signs Temperature 97.2 F L 11/06/17 09:51 Pulse Rate 70 11/06/17 09:51 Respiratory Rate 20 11/06/17 09:51 Blood Pressure 139/62 11/06/17 09:51 O2 Sat by Pulse Oximetry (%) 11/06/17 12:42 Laboratory Last Values WBC 4.6 K/mm3 (4.0-10.0) 11/06/17 08:00 RBC 4.27 M/mm3 (4.00-5.60) 11/06/17 08:00 Hgb 13.0 GM/dL (11.7-16.9) 11/06/17 08:00 Hct 39.0 % (35.4-49) 11/06/17 08:00 MCV 91.5 fl (80-96) 11/06/17 08:00 MCH 30.5 pg (25.7-33.7) 11/06/17 08:00 MCHC 33.4 g/dl (32.0-35.9) 11/06/17 08:00 RDW 15.7 % (11.9-15.9) 11/06/17 08:00 Plt Count 222 K/MM3 (134-434) D 11/06/17 08:00 MPV 8.7 fl (7.5-11.1) 11/06/17 08:00 Sodium 143 mmol/L (136-145) 11/06/17 08:00 Potassium 4.4 mmol/L (3.5-5.1) 11/06/17 08:00 Chloride 107 mmol/L (98-107) 11/06/17 08:00 Carbon Dioxide 30 mmol/L (21-32) 11/06/17 08:00 Anion Gap 6 (8-16) L 11/06/17 08:00 BUN 18 mg/dL (7-18) 11/06/17 08:00 Creatinine 1.2 mg/dL (0.7-1.3) 11/06/17 08:00 Creat Clearance w eGFR > 60 (>60) 11/06/17 08:00 Random Glucose 93 mg/dL (74-106) D 11/06/17 08:00 Calcium 8.7 mg/dL (8.5-10.1) 11/06/17 08:00 Total Bilirubin 0.2 mg/dL (0.2-1.0) 11/06/17 08:00 AST 9 U/L (15-37) L D 11/06/17 08:00 ALT 12 U/L (12-78) D 11/06/17 08:00 Alkaline Phosphatase 68 U/L (45-117) 11/06/17 08:00 Total Protein 6.6 g/dl (6.4-8.2) 11/06/17 08:00 Albumin 3.3 g/dl (3.4-5.0) L 11/06/17 08:00 Urine Color Yellow 11/06/17 08:30 Urine Appearance Turbid 11/06/17 08:30 Urine pH 6.0 (5.0-8.0) 11/06/17 08:30 Ur Specific [place] 1.034 (1.001-1.035) 11/06/17 08:30 Urine Protein 1+ (NEGATIVE) H 11/06/17 08:30 Urine Glucose (UA) Negative (NEGATIVE) 11/06/17 08:30 Urine Ketones Negative (NEGATIVE) 11/06/17 08:30 Urine Blood 1+ (NEGATIVE) H 11/06/17 08:30 Urine Nitrite Negative (NEGATIVE) 11/06/17 08:30 Urine Bilirubin Negative (<2.0 mg/dL) 11/06/17 08:30 Urine Urobilinogen Negative mg/dL (0.2-1.0) 11/06/17 08:30 Ur Leukocyte Esterase Negative (NEGATIVE) 11/06/17 08:30 Urine WBC (Auto) 34 /hpf (3-5) 11/06/17 08:30 Urine RBC (Auto) 3 /hpf (0-3) 11/06/17 08:30 Urine Bacteria Many /hpf (NONE SEEN) 11/06/17 08:30 Urine Mucus Rare 11/06/17 08:30 Assessment: 11/06/17 12:45 withdrawal symptom Plan: continue detox,encourage oral fluid,repeat ua r/o uti
--- NOTE | 2017-11-06 13:52 | CONSULT ---
[facility] Psychiatric Consult - Data Date of interview: 11/06/17 Admission source: [facility] Identifying data: Patient is approached at bedside for the psychiatric interview.Mr Quiles refused." I don't need to talk to psychiatrists." Nursing staff is made aware.
[2017-11-06] MEDS: NICOTINE POLACRILEX 2 MG GUM BC PRN (18:14)
--- NOTE | 2017-11-06 19:00 | EKG ---
Test Reason : Blood Pressure : / mmHG Vent. Rate : 068 BPM Atrial Rate : 068 BPM P-R Int : 168 ms QRS Dur : 102 ms QT Int : 440 ms P-R-T Axes : 070 073 069 degrees QTc Int : 467 ms NORMAL SINUS RHYTHM WITH SINUS ARRHYTHMIA MINIMAL VOLTAGE CRITERIA FOR LVH, MAY BE NORMAL VARIANT BORDERLINE ECG WHEN COMPARED WITH ECG OF 15-SEP-2017 12:28, NO SIGNIFICANT CHANGE WAS FOUND Confirmed by MD BLAINE, MICHELL ([id number]) on 11/06/2017 6:59:51 PM Referred By: Confirmed By:MICHELL VALLADARES MD
[2017-11-07] MEDS: chlordiazePOXIDE HCL 25 MG CAPSULE PO SCH ×2 (05:56→10:44)
[2017-11-07 07:27] VITALS: TEMP 97.7
[2017-11-07] MEDS: NICOTINE 14 MG/24 HOURS TOPICAL PATCH TD SCH (10:44)
[2017-11-07] MEDS: PRENATAL VITAMINS W/ FOLIC ACID TABLET (FP) PO SCH (10:44)
[2017-11-07] MEDS: NICOTINE POLACRILEX 2 MG GUM BC PRN (10:46)
[2017-11-07 13:19] VITALS: BP 134/70; PULSE 70
--- NOTE | 2017-11-07 15:51 | PN ---
[facility] Progress Note Note: Spoke w/ patient who insists on signing out AMA. Denies chills, nausea, headaches. Vital Signs - 24 hr 11/06/17 11/07/17 11/07/17 18:09 00:30 07:26 Temperature 97.8 F 97.7 F Pulse Rate 74 66 Respiratory 18 18 18 Rate Blood Pressure 135/66 145/70 11/07/17 10:00 Temperature 97.7 F Pulse Rate 70 Respiratory 18 Rate Blood Pressure 134/70 Laboratory Last Values WBC 4.6 K/mm3 (4.0-10.0) 11/06/17 08:00 RBC 4.27 M/mm3 (4.00-5.60) 11/06/17 08:00 Hgb 13.0 GM/dL (11.7-16.9) 11/06/17 08:00 Hct 39.0 % (35.4-49) 11/06/17 08:00 MCV 91.5 fl (80-96) 11/06/17 08:00 MCH 30.5 pg (25.7-33.7) 11/06/17 08:00 MCHC 33.4 g/dl (32.0-35.9) 11/06/17 08:00 RDW 15.7 % (11.9-15.9) 11/06/17 08:00 Plt Count 222 K/MM3 (134-434) D 11/06/17 08:00 MPV 8.7 fl (7.5-11.1) 11/06/17 08:00 Sodium 143 mmol/L (136-145) 11/06/17 08:00 Potassium 4.4 mmol/L (3.5-5.1) 11/06/17 08:00 Chloride 107 mmol/L (98-107) 11/06/17 08:00 Carbon Dioxide 30 mmol/L (21-32) 11/06/17 08:00 Anion Gap 6 (8-16) L 11/06/17 08:00 BUN 18 mg/dL (7-18) 11/06/17 08:00 Creatinine 1.2 mg/dL (0.7-1.3) 11/06/17 08:00 Creat Clearance w eGFR > 60 (>60) 11/06/17 08:00 Random Glucose 93 mg/dL (74-106) D 11/06/17 08:00 Calcium 8.7 mg/dL (8.5-10.1) 11/06/17 08:00 Total Bilirubin 0.2 mg/dL (0.2-1.0) 11/06/17 08:00 AST 9 U/L (15-37) L D 11/06/17 08:00 ALT 12 U/L (12-78) D 11/06/17 08:00 Alkaline Phosphatase 68 U/L (45-117) 11/06/17 08:00 Total Protein 6.6 g/dl (6.4-8.2) 11/06/17 08:00 Albumin 3.3 g/dl (3.4-5.0) L 11/06/17 08:00 Urine Color Yellow 11/06/17 08:30 Urine Appearance Turbid 11/06/17 08:30 Urine pH 6.0 (5.0-8.0) 11/06/17 08:30 Ur Specific [place] 1.034 (1.001-1.035) 11/06/17 08:30 Urine Protein 1+ (NEGATIVE) H 11/06/17 08:30 Urine Glucose (UA) Negative (NEGATIVE) 11/06/17 08:30 Urine Ketones Negative (NEGATIVE) 11/06/17 08:30 Urine Blood 1+ (NEGATIVE) H 11/06/17 08:30 Urine Nitrite Negative (NEGATIVE) 11/06/17 08:30 Urine Bilirubin Negative (<2.0 mg/dL) 11/06/17 08:30 Urine Urobilinogen Negative mg/dL (0.2-1.0) 11/06/17 08:30 Ur Leukocyte Esterase Negative (NEGATIVE) 11/06/17 08:30 Urine WBC (Auto) 34 /hpf (3-5) 11/06/17 08:30 Urine RBC (Auto) 3 /hpf (0-3) 11/06/17 08:30 Urine Bacteria Many /hpf (NONE SEEN) 11/06/17 08:30 Urine Mucus Rare 11/06/17 08:30 RPR Titer Nonreactive (NONREACTIVE) 11/06/17 08:00 Alert and oriented x 3. Lungs CTA. Mild tremors of hands. 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 Discussed potential for relapse, relapse prevention hints, and verbalized an understanding. Encouraged to avoid alcohol use and after completing business, to consider returning for rehab. Patient states will consider rehab. Patient discharged AMA.
--- NOTE | 2017-11-07 16:00 | DS ---
[facility] Detox Discharge Summary Admission Date: 11/05/17 Discharge Date: 11/07/17 - History Present History: Alcohol Dependence (with withdrawal symptoms.) - Physical Exam Results Vital Signs: Vital Signs Temperature 97.7 F 11/07/17 10:00 Pulse Rate 70 11/07/17 10:00 Respiratory Rate 18 11/07/17 10:00 Blood Pressure 134/70 11/07/17 10:00 O2 Sat by Pulse Oximetry (%) Pertinent Admission Physical Exam Findings: Alcohol withdrawal. Laboratory Tests 11/06/17 11/06/17 11/06/17 08:00 08:00 08:00 WBC 4.6 RBC 4.27 Hgb 13.0 Hct 39.0 MCV 91.5 MCH 30.5 MCHC 33.4 RDW 15.7 Plt Count 222 D MPV 8.7 Sodium 143 Potassium 4.4 Chloride 107 Carbon Dioxide 30 Anion Gap 6 L BUN 18 Creatinine 1.2 Creat Clearance w eGFR > 60 Random Glucose 93 D Calcium 8.7 Total Bilirubin 0.2 AST 9 L D ALT 12 D Alkaline Phosphatase 68 Total Protein 6.6 Albumin 3.3 L Urine Color Urine Appearance Urine pH Ur Specific [place] Urine Protein Urine Glucose (UA) Urine Ketones Urine Blood Urine Nitrite Urine Bilirubin Urine Urobilinogen Ur Leukocyte Esterase Urine WBC (Auto) Urine RBC (Auto) Urine Bacteria Urine Mucus RPR Titer Nonreactive 11/06/17 08:30 WBC RBC Hgb Hct MCV MCH MCHC RDW Plt Count MPV Sodium Potassium Chloride Carbon Dioxide Anion Gap BUN Creatinine Creat Clearance w eGFR Random Glucose Calcium Total Bilirubin AST ALT Alkaline Phosphatase Total Protein Albumin Urine Color Yellow Urine Appearance Turbid Urine pH 6.0 Ur Specific [place] 1.034 Urine Protein 1+ H Urine Glucose (UA) Negative Urine Ketones Negative Urine Blood 1+ H Urine Nitrite Negative Urine Bilirubin Negative Urine Urobilinogen Negative Ur Leukocyte Esterase Negative Urine WBC (Auto) 34 Urine RBC (Auto) 3 Urine Bacteria Many Urine Mucus Rare RPR Titer Labs reviewed. - Treatment Hospital Course: Detox Protocol Followed (Patient did not complete protocol. Alert and oriented x 3. Lungs CTA. Mild tremors of hands. 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 Discussed potential for relapse, relapse prevention hints, and verbalized an understanding. Encouraged to avoid alcohol use and after completing business, to consider returning for rehab. Patient states will consider rehab.) - Medication Discharge Medications: Ambulatory Orders Bupropion HCl [Wellbutrin Sr] 150 mg PO DAILY 11/05/17 - Diagnosis (1) Alcohol dependence with uncomplicated withdrawal Status: Chronic (2) Nicotine dependence Status: Chronic Qualifiers: Nicotine product type: cigarettes Substance use status: in withdrawal Qualified Code(s): F17.213 - Nicotine dependence, cigarettes, with withdrawal (3) Cocaine dependence Status: Chronic Qualifiers: Substance use status: uncomplicated Qualified Code(s): F14.20 - Cocaine dependence, uncomplicated - AMA Did Patient Leave Against Medical Advice: Yes
[2017-11-07] MEDS ORDERED: chlordiazePOXIDE 5 MG CAPSULE PO SCH (23:00)
[2017-11-08] MEDS ORDERED: chlordiazePOXIDE HCL 10 MG CAPSULE PO SCH (23:00)
== END 2017-11-07 13:03 | disposition left against medical advice (07) | DRG 770 ==
LOC: YASAS 10:59 → Y6N 20:18
PROVIDERS: ADMIT Surgery; ATTEND Surgery
PROC: HZ2ZZZZ Detoxification Services for Substance Abuse Treatment (ICD-10-PCS; principal; 2017-11-05)
DX: F10.230 Alcohol dependence with withdrawal, uncomplicated (principal); F14.20 Cocaine dependence, uncomplicated; F17.213 Nicotine dependence, cigarettes, with withdrawal; F32.9 Major depressive disorder, single episode, unspecified; F41.9 Anxiety disorder, unspecified; Z91.013 Allergy to seafood
CPT/HCPCS: 36415; 80053; 81003; 81015; 85027; 86593; 93005; 93010

== ENCOUNTER 2020-12-14 11:34 | Inpatient (IN) | payer OTHER ==
[2020-12-14 12:19] VITALS: BMI 26.6
[2020-12-14] MEDS ORDERED: METHOCARBAMOL 500 MG TABLET PO PRN (13:04)
[2020-12-14] MEDS ORDERED: ONDANSETRON *ODT* 4 MG TABLET SL PRN (13:04)
[2020-12-14] MEDS ORDERED: LORazepam 1 MG TABLET PO PRN (13:04)
[2020-12-14] MEDS ORDERED: ACETAMINOPHEN 325 MG TABLET (FP) PO PRN ×2 (13:04)
[2020-12-14] MEDS ORDERED: NICOTINE 10 MG CARTRIDGE (INHALER) IH PRN (13:04)
[2020-12-14] MEDS ORDERED: IBUPROFEN 400 MG TABLET (FP) PO PRN (13:04)
[2020-12-14] MEDS ORDERED: MAGNESIUM CITRATE 300 ML BOTTLE PO PRN (13:04)
[2020-12-14] MEDS ORDERED: MAG HYDROX/AL HYDROX/SIMETH 30 ML UNIT-DOSE CUP PO PRN (13:04)
[2020-12-14] MEDS ORDERED: MAGNESIUM HYDROX 2400MG/30ML ORAL SUSPENSION 30 ML CUP PO PRN (13:04)
[2020-12-14] MEDS ORDERED: MENTHOL/PHENOL 1 EACH UD MM PRN (13:04)
[2020-12-14] MEDS: hydrOXYzine PAMOATE 25 MG CAPSULE (FP) PO SCH ×3 (15:12→23:25)
[2020-12-14] MEDS: LORazepam 2 MG TABLET PO SCH ×2 (18:41→23:25)
[2020-12-14] MEDS: metFORMIN HCL 500 MG TABLET (FP) PO SCH (18:43)
[2020-12-14] MEDS: MELATONIN 5 MG TABLETS PO SCH (23:25)
[2020-12-14] MEDS: THIAMINE HCL 100 MG TABLET (FP) PO SCH (23:25)
[2020-12-15] MEDS: LORazepam 2 MG TABLET PO SCH ×4 (05:27→22:19)
[2020-12-15] MEDS: hydrOXYzine PAMOATE 25 MG CAPSULE (FP) PO SCH ×5 (05:28→22:18)
[2020-12-15] MEDS: metFORMIN HCL 500 MG TABLET (FP) PO SCH ×2 (06:03→17:22)
[2020-12-15] MEDS: LISINOPRIL 20 MG TABLET PO SCH (10:59)
[2020-12-15] MEDS: PRENATAL VITAMINS W/ FOLIC ACID TABLET (FP) PO SCH (11:00)
[2020-12-15 11:54] LABS: HEMATOCRIT 41.9 % (35.4-49); HEMOGLOBIN 13.9 GM/dL (11.7-16.9); MCH 31.2 pg (25.7-33.7); MCHC 33.1 g/dl (32.0-35.9); MEAN CELL VOLUME 94.4 fl (80-96); MEAN PLT VOLUME 9.3 fl (7.5-11.1); PLATELET COUNT 245 10^3/uL (134-434); RBC 4.44 M/mm3 (4.00-5.60); WHITE BLOOD COUNT 5.2 K/mm3 (4.0-10.0)
[2020-12-15 11:58] LABS: CALCIUM 8.7 mg/dL (8.5-10.1)
[2020-12-15 11:59] LABS: ALBUMIN 3.5 g/dl (3.4-5.0); BLOOD UREA NITROGEN 16.3 mg/dL (7-18)
[2020-12-15 12:03] LABS: BILIRUBIN,TOTAL 0.2 mg/dL (0.2-1)
[2020-12-15] MEDS: THIAMINE HCL 100 MG TABLET (FP) PO SCH (22:18)
[2020-12-15] MEDS: MELATONIN 5 MG TABLETS PO SCH (22:18)
[2020-12-16] MEDS: hydrOXYzine PAMOATE 25 MG CAPSULE (FP) PO SCH ×5 (05:28→22:26)
[2020-12-16] MEDS: LORazepam 1 MG TABLET PO SCH ×4 (05:28→22:26)
[2020-12-16] MEDS: metFORMIN HCL 500 MG TABLET (FP) PO SCH ×2 (06:52→17:35)
[2020-12-16] MEDS: PRENATAL VITAMINS W/ FOLIC ACID TABLET (FP) PO SCH (10:32)
[2020-12-16] MEDS: LISINOPRIL 20 MG TABLET PO SCH (10:33)
[2020-12-16] MEDS ORDERED: JANSSEN COVID-19 VAC,AD26/PF 0.5 ML IM ONE (11:00)
[2020-12-16] MEDS: NICOTINE 21 MG/24 HOURS TOPICAL PATCH TD SCH (14:57)
[2020-12-16] MEDS: NICOTINE POLACRILEX 2 MG GUM BUC PRN ×2 (16:42→18:44)
[2020-12-16] MEDS: MELATONIN 5 MG TABLETS PO SCH (22:26)
[2020-12-16] MEDS: THIAMINE HCL 100 MG TABLET (FP) PO SCH (22:26)
[2020-12-17] MEDS ORDERED: LORazepam 0.5 MG TABLET PO PRN
[2020-12-17] MEDS: hydrOXYzine PAMOATE 25 MG CAPSULE (FP) PO SCH ×5 (05:38→22:01)
[2020-12-17] MEDS: NICOTINE POLACRILEX 2 MG GUM BUC PRN ×4 (05:40→22:03)
[2020-12-17] MEDS: LORazepam 0.5 MG TABLET PO SCH ×4 (05:44→22:01)
[2020-12-17] MEDS: metFORMIN HCL 500 MG TABLET (FP) PO SCH ×2 (06:27→17:12)
[2020-12-17] MEDS: NICOTINE 21 MG/24 HOURS TOPICAL PATCH TD SCH (10:42)
[2020-12-17] MEDS: PRENATAL VITAMINS W/ FOLIC ACID TABLET (FP) PO SCH (10:42)
[2020-12-17] MEDS: LISINOPRIL 20 MG TABLET PO SCH (10:43)
[2020-12-17] MEDS: BISMUTH SUBSALICYLATE 524 MG/30 ML PO PRN ×2 (10:45→17:27)
[2020-12-17] MEDS ORDERED: LISINOPRIL 5 MG TABLET PO ONE (21:54)
[2020-12-17] MEDS: MELATONIN 5 MG TABLETS PO SCH (22:01)
[2020-12-17] MEDS: THIAMINE HCL 100 MG TABLET (FP) PO SCH (22:01)
[2020-12-18] MEDS ORDERED: LORazepam 0.5 MG TABLET PO ONE (05:00)
[2020-12-18] MEDS: metFORMIN HCL 500 MG TABLET (FP) PO SCH (06:41)
[2020-12-18] MEDS: hydrOXYzine PAMOATE 25 MG CAPSULE (FP) PO SCH ×2 (06:41→10:34)
[2020-12-18 08:52] VITALS: BP 141/78; PULSE 68; TEMP 96.8
[2020-12-18] MEDS: PRENATAL VITAMINS W/ FOLIC ACID TABLET (FP) PO SCH (10:33)
[2020-12-18] MEDS: LISINOPRIL 20 MG TABLET PO SCH (10:33)
[2020-12-18] MEDS: NICOTINE 21 MG/24 HOURS TOPICAL PATCH TD SCH (10:33)
[2020-12-18] MEDS: NICOTINE POLACRILEX 2 MG GUM BUC PRN ×2 (10:34→12:35)
== END 2020-12-18 12:40 | disposition other institution (70) | DRG 774 ==
LOC: YASAS 11:34 → Y3N 13:31
PROVIDERS: ADMIT Allergy & Immunology; ATTEND Allergy & Immunology
PROC: HZ2ZZZZ Detoxification Services for Substance Abuse Treatment (ICD-10-PCS; principal; 2020-12-14)
DX: F10.230 Alcohol dependence with withdrawal, uncomplicated (principal); F14.10 Cocaine abuse, uncomplicated; F25.9 Schizoaffective disorder, unspecified; F19.24 Other psychoactive substance dependence with psychoactive substance-induced mood disorder; I10 Essential (primary) hypertension; E11.9 Type 2 diabetes mellitus without complications; Z91.013 Allergy to seafood; Z79.84 Long term (current) use of oral hypoglycemic drugs; Z56.0 Unemployment, unspecified
CPT/HCPCS: 0031A; 36415; 80053; 82962; 85027; 86780; 91303; C9803; U0003; U0005

== ENCOUNTER 2020-12-18 12:33 | Inpatient (IN) | payer OTHER ==
[2020-12-18] MEDS ORDERED: LOPERAMIDE HCL 2 MG CAPSULE PO PRN (15:12)
[2020-12-18] MEDS ORDERED: guaiFENesin 200 MG/10 ML 10 ML UNIT-DOSE CUPS PO PRN (15:12)
[2020-12-18] MEDS ORDERED: NICOTINE 10 MG CARTRIDGE (INHALER) IH PRN (15:12)
[2020-12-18] MEDS ORDERED: MAGNESIUM CITRATE 300 ML BOTTLE PO PRN (15:12)
[2020-12-18] MEDS ORDERED: P-EPHED 60MG/TRIPROLIDI 2.5MG TABLET PO PRN (15:12)
[2020-12-18] MEDS ORDERED: MAGNESIUM HYDROX 2400MG/30ML ORAL SUSPENSION 30 ML CUP PO PRN (15:12)
[2020-12-18] MEDS ORDERED: MENTHOL/PHENOL 1 EACH UD MM PRN (15:12)
[2020-12-18] MEDS: metFORMIN HCL 500 MG TABLET (FP) PO SCH (17:30)
[2020-12-18] MEDS: INSULIN SLIDING SCALE (NOVOLOG) 1 VIAL SQ SCH (17:31)
[2020-12-18] MEDS: NICOTINE POLACRILEX 2 MG GUM BUC PRN (19:12)
[2020-12-18] MEDS: MELATONIN 5 MG TABLETS PO SCH (21:07)
[2020-12-18] MEDS: THIAMINE HCL 100 MG TABLET (FP) PO SCH (21:08)
[2020-12-18] MEDS: hydrOXYzine PAMOATE 25 MG CAPSULE (FP) PO PRN (21:08)
[2020-12-19] MEDS: ACETAMINOPHEN 325 MG TABLET (FP) PO PRN (00:43)
[2020-12-19] MEDS: metFORMIN HCL 500 MG TABLET (FP) PO SCH ×2 (06:11→16:46)
[2020-12-19] MEDS: INSULIN SLIDING SCALE (NOVOLOG) 1 VIAL SQ SCH ×2 (06:12→17:06)
[2020-12-19] MEDS: LISINOPRIL 20 MG TABLET PO SCH (09:46)
[2020-12-19] MEDS: NICOTINE 21 MG/24 HOURS TOPICAL PATCH TD SCH (09:46)
[2020-12-19] MEDS: IBUPROFEN 400 MG TABLET (FP) PO PRN ×2 (09:47→21:32)
[2020-12-19] MEDS: PRENATAL VITAMINS W/ FOLIC ACID TABLET (FP) PO SCH (09:48)
[2020-12-19] MEDS: NICOTINE POLACRILEX 2 MG GUM BUC PRN ×3 (09:49→17:54)
[2020-12-19] MEDS: MAG HYDROX/AL HYDROX/SIMETH 30 ML UNIT-DOSE CUP PO PRN ×2 (14:38→19:59)
[2020-12-19] MEDS: hydrOXYzine PAMOATE 25 MG CAPSULE (FP) PO PRN (21:10)
[2020-12-19] MEDS: THIAMINE HCL 100 MG TABLET (FP) PO SCH (21:10)
[2020-12-19] MEDS: MELATONIN 5 MG TABLETS PO SCH (21:12)
[2020-12-20] MEDS: metFORMIN HCL 500 MG TABLET (FP) PO SCH ×2 (06:18→16:28)
[2020-12-20] MEDS: INSULIN SLIDING SCALE (NOVOLOG) 1 VIAL SQ SCH ×2 (06:20→17:03)
[2020-12-20] MEDS: LISINOPRIL 20 MG TABLET PO SCH (09:52)
[2020-12-20] MEDS: CYANOCOBALAMIN 1,000 MCG TABLET (FP) PO SCH (09:52)
[2020-12-20] MEDS: PRENATAL VITAMINS W/ FOLIC ACID TABLET (FP) PO SCH (09:52)
[2020-12-20] MEDS: NICOTINE 21 MG/24 HOURS TOPICAL PATCH TD SCH (09:53)
[2020-12-20] MEDS: IBUPROFEN 400 MG TABLET (FP) PO PRN (09:57)
[2020-12-20] MEDS: MAG HYDROX/AL HYDROX/SIMETH 30 ML UNIT-DOSE CUP PO PRN (09:58)
[2020-12-20] MEDS ORDERED: PT OWN MED DRAWER 7, Y5N ONE (16:03)
[2020-12-20] MEDS: THIAMINE HCL 100 MG TABLET (FP) PO SCH (21:17)
[2020-12-20] MEDS: MELATONIN 5 MG TABLETS PO SCH (21:17)
[2020-12-20] MEDS: hydrOXYzine PAMOATE 25 MG CAPSULE (FP) PO PRN (21:17)
[2020-12-21] MEDS: MAG HYDROX/AL HYDROX/SIMETH 30 ML UNIT-DOSE CUP PO PRN ×2 (01:05→10:12)
[2020-12-21] MEDS: IBUPROFEN 400 MG TABLET (FP) PO PRN ×2 (06:21→21:36)
[2020-12-21] MEDS: metFORMIN HCL 500 MG TABLET (FP) PO SCH ×2 (06:21→16:57)
[2020-12-21] MEDS: INSULIN SLIDING SCALE (NOVOLOG) 1 VIAL SQ SCH ×2 (06:21→16:57)
[2020-12-21] MEDS ORDERED: PT OWN MED DRAWER 7, Y5N ONE (08:34)
[2020-12-21] MEDS: NICOTINE 21 MG/24 HOURS TOPICAL PATCH TD SCH (10:10)
[2020-12-21] MEDS: PRENATAL VITAMINS W/ FOLIC ACID TABLET (FP) PO SCH (10:10)
[2020-12-21] MEDS: CYANOCOBALAMIN 1,000 MCG TABLET (FP) PO SCH (10:10)
[2020-12-21] MEDS: LISINOPRIL 20 MG TABLET PO SCH (10:10)
[2020-12-21] MEDS: NICOTINE POLACRILEX 2 MG GUM BUC PRN ×2 (17:55→21:37)
[2020-12-21] MEDS: MELATONIN 5 MG TABLETS PO SCH (21:36)
[2020-12-21] MEDS: THIAMINE HCL 100 MG TABLET (FP) PO SCH (21:37)
[2020-12-22] MEDS: NICOTINE POLACRILEX 2 MG GUM BUC PRN ×5 (01:06→19:41)
[2020-12-22] MEDS: metFORMIN HCL 500 MG TABLET (FP) PO SCH ×2 (06:24→16:55)
[2020-12-22] MEDS: INSULIN SLIDING SCALE (NOVOLOG) 1 VIAL SQ SCH ×2 (06:24→16:55)
[2020-12-22] MEDS: IBUPROFEN 400 MG TABLET (FP) PO PRN ×2 (06:24→14:20)
[2020-12-22] MEDS ORDERED: PT OWN MED DRAWER 7, Y5N ONE (08:29)
[2020-12-22] MEDS: CYANOCOBALAMIN 1,000 MCG TABLET (FP) PO SCH (09:37)
[2020-12-22] MEDS: PRENATAL VITAMINS W/ FOLIC ACID TABLET (FP) PO SCH (09:37)
[2020-12-22] MEDS: LISINOPRIL 20 MG TABLET PO SCH (09:37)
[2020-12-22] MEDS: NICOTINE 21 MG/24 HOURS TOPICAL PATCH TD SCH (09:38)
[2020-12-22] MEDS: hydrOXYzine PAMOATE 25 MG CAPSULE (FP) PO PRN ×2 (09:38→21:03)
[2020-12-22] MEDS ORDERED: INSULIN (NOVOLOG) ASPART 100 UNITS/ML 10ML VIAL ONE (16:56)
[2020-12-22] MEDS: THIAMINE HCL 100 MG TABLET (FP) PO SCH (21:03)
[2020-12-22] MEDS: MELATONIN 5 MG TABLETS PO SCH (21:03)
[2020-12-23] MEDS: MAG HYDROX/AL HYDROX/SIMETH 30 ML UNIT-DOSE CUP PO PRN (00:57)
[2020-12-23] MEDS ORDERED: PT OWN MED DRAWER 7, Y5N ONE (03:10)
[2020-12-23] MEDS: INSULIN SLIDING SCALE (NOVOLOG) 1 VIAL SQ SCH ×2 (07:09→16:44)
[2020-12-23] MEDS: metFORMIN HCL 500 MG TABLET (FP) PO SCH ×2 (07:09→16:43)
[2020-12-23] MEDS ORDERED: INSULIN (NOVOLOG) ASPART 100 UNITS/ML 10ML VIAL ONE ×2 (07:33→16:44)
[2020-12-23] MEDS: LISINOPRIL 20 MG TABLET PO SCH (09:21)
[2020-12-23] MEDS: PRENATAL VITAMINS W/ FOLIC ACID TABLET (FP) PO SCH (09:21)
[2020-12-23] MEDS: CYANOCOBALAMIN 1,000 MCG TABLET (FP) PO SCH (09:21)
[2020-12-23] MEDS: NICOTINE 21 MG/24 HOURS TOPICAL PATCH TD SCH (09:21)
[2020-12-23] MEDS: NICOTINE POLACRILEX 2 MG GUM BUC PRN ×4 (09:22→21:55)
[2020-12-23] MEDS: THIAMINE HCL 100 MG TABLET (FP) PO SCH (21:55)
[2020-12-23] MEDS: MELATONIN 5 MG TABLETS PO SCH (21:55)
[2020-12-23] MEDS: hydrOXYzine PAMOATE 25 MG CAPSULE (FP) PO PRN (21:55)
[2020-12-24] MEDS: IBUPROFEN 400 MG TABLET (FP) PO PRN ×2 (05:57→21:36)
[2020-12-24] MEDS: NICOTINE POLACRILEX 2 MG GUM BUC PRN ×4 (05:58→21:36)
[2020-12-24] MEDS: metFORMIN HCL 500 MG TABLET (FP) PO SCH ×2 (06:00→16:28)
[2020-12-24] MEDS: INSULIN SLIDING SCALE (NOVOLOG) 1 VIAL SQ SCH ×2 (06:00→16:29)
[2020-12-24] MEDS: LISINOPRIL 20 MG TABLET PO SCH (09:48)
[2020-12-24] MEDS: CYANOCOBALAMIN 1,000 MCG TABLET (FP) PO SCH (09:48)
[2020-12-24] MEDS: NICOTINE 21 MG/24 HOURS TOPICAL PATCH TD SCH (09:48)
[2020-12-24] MEDS: PRENATAL VITAMINS W/ FOLIC ACID TABLET (FP) PO SCH (09:48)
[2020-12-24] MEDS: BISMUTH SUBSALICYLATE 262 MG/15 ML BTL PO PRN (11:18)
[2020-12-24] MEDS: MELATONIN 5 MG TABLETS PO SCH (21:35)
[2020-12-24] MEDS: THIAMINE HCL 100 MG TABLET (FP) PO SCH (21:35)
[2020-12-24] MEDS: hydrOXYzine PAMOATE 25 MG CAPSULE (FP) PO PRN (21:35)
[2020-12-25] MEDS: INSULIN SLIDING SCALE (NOVOLOG) 1 VIAL SQ SCH ×2 (06:36→17:02)
[2020-12-25] MEDS: IBUPROFEN 400 MG TABLET (FP) PO PRN (06:38)
[2020-12-25] MEDS: metFORMIN HCL 500 MG TABLET (FP) PO SCH ×2 (06:39→16:55)
[2020-12-25] MEDS: NICOTINE POLACRILEX 2 MG GUM BUC PRN ×2 (06:40→10:01)
[2020-12-25] MEDS ORDERED: INSULIN (NOVOLOG) ASPART 100 UNITS/ML 10ML VIAL ONE (07:40)
[2020-12-25] MEDS: PRENATAL VITAMINS W/ FOLIC ACID TABLET (FP) PO SCH (09:54)
[2020-12-25] MEDS: LISINOPRIL 20 MG TABLET PO SCH (09:55)
[2020-12-25] MEDS: NICOTINE 21 MG/24 HOURS TOPICAL PATCH TD SCH (09:55)
[2020-12-25] MEDS: BISMUTH SUBSALICYLATE 262 MG/15 ML BTL PO PRN ×2 (09:59→21:19)
[2020-12-25] MEDS: CYANOCOBALAMIN 1,000 MCG TABLET (FP) PO SCH (10:22)
[2020-12-25] MEDS: ACETAMINOPHEN 325 MG TABLET (FP) PO PRN (17:49)
[2020-12-25] MEDS: THIAMINE HCL 100 MG TABLET (FP) PO SCH (21:18)
[2020-12-25] MEDS: MELATONIN 5 MG TABLETS PO SCH (21:18)
[2020-12-25] MEDS: hydrOXYzine PAMOATE 25 MG CAPSULE (FP) PO PRN (21:19)
[2020-12-26] MEDS: INSULIN SLIDING SCALE (NOVOLOG) 1 VIAL SQ SCH (06:55)
[2020-12-26] MEDS: metFORMIN HCL 500 MG TABLET (FP) PO SCH (06:55)
[2020-12-26] MEDS: ACETAMINOPHEN 325 MG TABLET (FP) PO PRN (06:57)
[2020-12-26] MEDS: NICOTINE POLACRILEX 2 MG GUM BUC PRN ×2 (06:58→13:02)
[2020-12-26] MEDS: BISMUTH SUBSALICYLATE 262 MG/15 ML BTL PO PRN (07:00)
[2020-12-26 07:10] VITALS: BP 134/68; PULSE 69; TEMP 96.8
[2020-12-26] MEDS ORDERED: INSULIN (NOVOLOG) ASPART 100 UNITS/ML 10ML VIAL ONE (07:14)
[2020-12-26] MEDS: LISINOPRIL 20 MG TABLET PO SCH (09:53)
[2020-12-26] MEDS: NICOTINE 21 MG/24 HOURS TOPICAL PATCH TD SCH (09:53)
[2020-12-26] MEDS: CYANOCOBALAMIN 1,000 MCG TABLET (FP) PO SCH (09:53)
[2020-12-26] MEDS: PRENATAL VITAMINS W/ FOLIC ACID TABLET (FP) PO SCH (09:54)
== END 2020-12-26 13:06 | disposition home or self-care (01) | DRG 772 ==
LOC: YASAS 12:33 → Y3E 12:34 → Y3W 18:42 → Y5N 12-24 14:37
PROVIDERS: ADMIT Allergy & Immunology; ATTEND Allergy & Immunology
PROC: HZ42ZZZ Group Counseling for Substance Abuse Treatment, Cognitive-Behavioral (ICD-10-PCS; principal; 2020-12-18)
DX: F10.20 Alcohol dependence, uncomplicated (principal); F14.20 Cocaine dependence, uncomplicated; F17.210 Nicotine dependence, cigarettes, uncomplicated; F25.9 Schizoaffective disorder, unspecified; F41.9 Anxiety disorder, unspecified; F32.9 Major depressive disorder, single episode, unspecified; I10 Essential (primary) hypertension; E11.9 Type 2 diabetes mellitus without complications; Z79.84 Long term (current) use of oral hypoglycemic drugs; Z91.013 Allergy to seafood
CPT/HCPCS: 82962

== ENCOUNTER 2021-04-25 14:32 | Inpatient (IN) | payer OTHER ==
[2021-04-25 15:43] VITALS: BMI 27.4
[2021-04-25] MEDS ORDERED: MAGNESIUM HYDROX 2400MG/30ML ORAL SUSPENSION 30 ML CUP PO PRN (18:12)
[2021-04-25] MEDS ORDERED: DICYCLOMINE HCL 10 MG CAPSULE PO PRN (18:12)
[2021-04-25] MEDS ORDERED: MAGNESIUM CITRATE 300 ML BOTTLE PO PRN (18:12)
[2021-04-25] MEDS ORDERED: IBUPROFEN 400 MG TABLET (FP) PO PRN (18:12)
[2021-04-25] MEDS ORDERED: guaiFENesin 200 MG/10 ML 10 ML UNIT-DOSE CUPS PO PRN (18:12)
[2021-04-25] MEDS ORDERED: P-EPHED 60MG/TRIPROLIDI 2.5MG TABLET PO PRN (18:12)
[2021-04-25] MEDS ORDERED: BISMUTH SUBSALICYLATE 524 MG/30 ML PO PRN (18:12)
[2021-04-25] MEDS ORDERED: ONDANSETRON *ODT* 4 MG TABLET SL PRN (18:12)
[2021-04-25] MEDS ORDERED: MAG HYDROX/AL HYDROX/SIMETH 30 ML UNIT-DOSE CUP PO PRN (18:12)
[2021-04-25] MEDS ORDERED: ACETAMINOPHEN 325 MG TABLET (FP) PO PRN ×2 (18:12)
[2021-04-25] MEDS ORDERED: MENTHOL/PHENOL 1 EACH UD MM PRN (18:12)
[2021-04-25] MEDS: METHOCARBAMOL 500 MG TABLET PO PRN (22:18)
[2021-04-25] MEDS: THIAMINE HCL 100 MG TABLET (FP) PO SCH (22:18)
[2021-04-25] MEDS: MELATONIN 5 MG TABLETS PO SCH (22:18)
[2021-04-26] MEDS: metFORMIN HCL 500 MG TABLET (FP) PO SCH ×2 (07:16→17:47)
[2021-04-26] MEDS: PRENATAL VITAMINS W/ FOLIC ACID TABLET (FP) PO SCH (10:17)
[2021-04-26] MEDS: NICOTINE 21 MG/24 HOURS TOPICAL PATCH TD SCH (10:17)
[2021-04-26] MEDS: LISINOPRIL 20 MG TABLET PO SCH (10:17)
[2021-04-26] MEDS: hydrOXYzine PAMOATE 25 MG CAPSULE (FP) PO PRN ×2 (10:18→22:48)
[2021-04-26] MEDS: METHOCARBAMOL 500 MG TABLET PO PRN ×2 (10:18→22:48)
[2021-04-26] MEDS: NICOTINE POLACRILEX 2 MG GUM BUC PRN ×4 (10:19→22:49)
[2021-04-26] MEDS: VENLAFAXINE HCL 75 MG E.R. CAPSULES PO SCH (10:58)
[2021-04-26 13:54] LABS: HEMATOCRIT 37.7 % (35.4-49); HEMOGLOBIN 12.8 GM/dL (11.7-16.9); MCH 30.9 pg (25.7-33.7); MCHC 33.8 g/dl (32.0-35.9); MEAN CELL VOLUME 91.2 fl (80-96); MEAN PLT VOLUME 8.2 fl (7.5-11.1); PLATELET COUNT 260 10^3/uL (134-434); RBC 4.14 M/mm3 (4.00-5.60); RDW 15.2 % (11.9-15.9); WHITE BLOOD COUNT 4.4 K/mm3 (4.0-10.0)
[2021-04-26 14:13] LABS: CREATININE 1.2 mg/dL (0.55-1.3)
[2021-04-26 14:17] LABS: ALBUMIN 3.5 g/dl (3.4-5.0); BILIRUBIN,TOTAL 0.3 mg/dL (0.2-1); BLOOD UREA NITROGEN 17.6 mg/dL (7-18); TOT PROT 6.7 g/dl (6.4-8.2)
[2021-04-26] MEDS: THIAMINE HCL 100 MG TABLET (FP) PO SCH (22:48)
[2021-04-26] MEDS: MELATONIN 5 MG TABLETS PO SCH (22:48)
[2021-04-27] MEDS: metFORMIN HCL 500 MG TABLET (FP) PO SCH ×2 (07:52→18:27)
[2021-04-27] MEDS: NICOTINE POLACRILEX 2 MG GUM BUC PRN (10:12)
[2021-04-27] MEDS: LISINOPRIL 20 MG TABLET PO SCH (10:12)
[2021-04-27] MEDS: NICOTINE 21 MG/24 HOURS TOPICAL PATCH TD SCH (10:12)
[2021-04-27] MEDS: PRENATAL VITAMINS W/ FOLIC ACID TABLET (FP) PO SCH (10:12)
[2021-04-27] MEDS: VENLAFAXINE HCL 75 MG E.R. CAPSULES PO SCH (10:12)
[2021-04-27] MEDS ORDERED: INSULIN SLIDING SCALE (NOVOLOG) 1 VIAL SQ SCH (16:30)
[2021-04-27 19:04] VITALS: BP 126/68; PULSE 64; TEMP 97
== END 2021-04-27 18:50 | disposition other institution (70) | DRG 774 ==
LOC: YASAS 14:32 → Y6N 21:15
PROVIDERS: ADMIT Allergy & Immunology; ATTEND Allergy & Immunology
PROC: HZ2ZZZZ Detoxification Services for Substance Abuse Treatment (ICD-10-PCS; principal; 2021-04-25)
DX: F10.230 Alcohol dependence with withdrawal, uncomplicated (principal); F14.20 Cocaine dependence, uncomplicated; F12.20 Cannabis dependence, uncomplicated; F15.10 Other stimulant abuse, uncomplicated; F17.210 Nicotine dependence, cigarettes, uncomplicated; F19.24 Other psychoactive substance dependence with psychoactive substance-induced mood disorder; F41.9 Anxiety disorder, unspecified; G62.9 Polyneuropathy, unspecified; I10 Essential (primary) hypertension; E11.9 Type 2 diabetes mellitus without complications; Z79.84 Long term (current) use of oral hypoglycemic drugs; Z91.013 Allergy to seafood
CPT/HCPCS: 36415; 80053; 82962; 85027; 86780; C9803; U0003; U0005

== ENCOUNTER 2021-04-27 13:05 | Inpatient (IN) | payer OTHER ==
[2021-04-27] MEDS ORDERED: LOPERAMIDE HCL 2 MG CAPSULE PO PRN (17:29)
[2021-04-27] MEDS ORDERED: P-EPHED 60MG/TRIPROLIDI 2.5MG TABLET PO PRN (17:29)
[2021-04-27] MEDS ORDERED: guaiFENesin 200 MG/10 ML 10 ML UNIT-DOSE CUPS PO PRN (17:29)
[2021-04-27] MEDS ORDERED: MENTHOL/PHENOL 1 EACH UD MM PRN (17:29)
[2021-04-27] MEDS ORDERED: MAGNESIUM CITRATE 300 ML BOTTLE PO PRN (17:29)
[2021-04-27] MEDS ORDERED: ACETAMINOPHEN 325 MG TABLET (FP) PO PRN (17:29)
[2021-04-27] MEDS: THIAMINE HCL 100 MG TABLET (FP) PO SCH (21:00)
[2021-04-27] MEDS: MELATONIN 5 MG TABLETS PO PRN (21:00)
[2021-04-28] MEDS: IBUPROFEN 400 MG TABLET (FP) PO PRN ×2 (05:58→11:00)
[2021-04-28] MEDS: metFORMIN HCL 500 MG TABLET (FP) PO SCH ×2 (05:59→17:23)
[2021-04-28] MEDS: INSULIN SLIDING SCALE (NOVOLOG) 1 VIAL SQ SCH ×2 (06:44→17:26)
[2021-04-28] MEDS: PRENATAL VITAMINS W/ FOLIC ACID TABLET (FP) PO SCH (10:09)
[2021-04-28] MEDS: LISINOPRIL 20 MG TABLET PO SCH (10:09)
[2021-04-28] MEDS: VENLAFAXINE HCL 75 MG E.R. CAPSULES PO SCH (10:59)
[2021-04-28] MEDS: THIAMINE HCL 100 MG TABLET (FP) PO SCH (21:41)
[2021-04-28] MEDS: MELATONIN 5 MG TABLETS PO PRN (21:41)
[2021-04-29] MEDS: metFORMIN HCL 500 MG TABLET (FP) PO SCH ×2 (06:07→16:45)
[2021-04-29] MEDS: IBUPROFEN 400 MG TABLET (FP) PO PRN (06:07)
[2021-04-29] MEDS: INSULIN SLIDING SCALE (NOVOLOG) 1 VIAL SQ SCH ×2 (06:08→16:46)
[2021-04-29] MEDS: PRENATAL VITAMINS W/ FOLIC ACID TABLET (FP) PO SCH (09:48)
[2021-04-29] MEDS: LISINOPRIL 20 MG TABLET PO SCH (09:49)
[2021-04-29] MEDS: VENLAFAXINE HCL 75 MG E.R. CAPSULES PO SCH (09:50)
[2021-04-29] MEDS: THIAMINE HCL 100 MG TABLET (FP) PO SCH (21:27)
[2021-04-29] MEDS: MAG HYDROX/AL HYDROX/SIMETH 30 ML UNIT-DOSE CUP PO PRN (21:27)
[2021-04-29] MEDS: MELATONIN 5 MG TABLETS PO PRN (21:27)
[2021-04-30] MEDS: NICOTINE POLACRILEX 2 MG GUM BUC PRN ×3 (06:52→18:06)
[2021-04-30] MEDS: metFORMIN HCL 500 MG TABLET (FP) PO SCH ×2 (06:52→16:45)
[2021-04-30] MEDS: IBUPROFEN 400 MG TABLET (FP) PO PRN (06:55)
[2021-04-30] MEDS: INSULIN SLIDING SCALE (NOVOLOG) 1 VIAL SQ SCH ×2 (07:18→16:46)
[2021-04-30] MEDS: PRENATAL VITAMINS W/ FOLIC ACID TABLET (FP) PO SCH (09:45)
[2021-04-30] MEDS: LISINOPRIL 20 MG TABLET PO SCH (09:46)
[2021-04-30] MEDS: VENLAFAXINE HCL 75 MG E.R. CAPSULES PO SCH (09:47)
[2021-04-30] MEDS: MAG HYDROX/AL HYDROX/SIMETH 30 ML UNIT-DOSE CUP PO PRN ×2 (16:46→22:54)
[2021-04-30] MEDS: SUVOREXANT 10 MG TABLET PO PRN (21:27)
[2021-04-30] MEDS: THIAMINE HCL 100 MG TABLET (FP) PO SCH (21:28)
[2021-05-01] MEDS: INSULIN SLIDING SCALE (NOVOLOG) 1 VIAL SQ SCH ×2 (06:47→16:58)
[2021-05-01] MEDS: metFORMIN HCL 500 MG TABLET (FP) PO SCH ×2 (06:47→16:57)
[2021-05-01] MEDS: MAGNESIUM HYDROX 2400MG/30ML ORAL SUSPENSION 30 ML CUP PO PRN (06:49)
[2021-05-01] MEDS ORDERED: BISMUTH SUBSALICYLATE 262 MG/15 ML BTL PO ONE (10:13)
[2021-05-01] MEDS: LISINOPRIL 20 MG TABLET PO SCH (10:46)
[2021-05-01] MEDS: VENLAFAXINE HCL 75 MG E.R. CAPSULES PO SCH (10:47)
[2021-05-01] MEDS: PRENATAL VITAMINS W/ FOLIC ACID TABLET (FP) PO SCH (10:47)
[2021-05-01] MEDS: NICOTINE POLACRILEX 2 MG GUM BUC PRN (17:42)
[2021-05-01] MEDS: THIAMINE HCL 100 MG TABLET (FP) PO SCH (21:33)
[2021-05-01] MEDS: SUVOREXANT 10 MG TABLET PO PRN (21:34)
[2021-05-01] MEDS: hydrOXYzine PAMOATE 25 MG CAPSULE (FP) PO PRN (22:13)
[2021-05-02] MEDS: metFORMIN HCL 500 MG TABLET (FP) PO SCH ×2 (07:05→16:55)
[2021-05-02] MEDS: INSULIN SLIDING SCALE (NOVOLOG) 1 VIAL SQ SCH ×2 (07:06→16:56)
[2021-05-02] MEDS: VENLAFAXINE HCL 75 MG E.R. CAPSULES PO SCH (10:05)
[2021-05-02] MEDS: LISINOPRIL 20 MG TABLET PO SCH (10:05)
[2021-05-02] MEDS: PRENATAL VITAMINS W/ FOLIC ACID TABLET (FP) PO SCH (10:05)
[2021-05-02] MEDS: IBUPROFEN 400 MG TABLET (FP) PO PRN (10:06)
[2021-05-02] MEDS: NICOTINE POLACRILEX 2 MG GUM BUC PRN (12:42)
[2021-05-02] MEDS: MAGNESIUM HYDROX 2400MG/30ML ORAL SUSPENSION 30 ML CUP PO PRN (19:34)
[2021-05-02] MEDS: SUVOREXANT 10 MG TABLET PO PRN (21:02)
[2021-05-02] MEDS: THIAMINE HCL 100 MG TABLET (FP) PO SCH (21:02)
[2021-05-02] MEDS: hydrOXYzine PAMOATE 25 MG CAPSULE (FP) PO PRN (21:03)
[2021-05-02] MEDS: MAG HYDROX/AL HYDROX/SIMETH 30 ML UNIT-DOSE CUP PO PRN (22:40)
[2021-05-03] MEDS: metFORMIN HCL 500 MG TABLET (FP) PO SCH ×2 (06:20→16:48)
[2021-05-03] MEDS: INSULIN SLIDING SCALE (NOVOLOG) 1 VIAL SQ SCH ×2 (06:23→16:51)
[2021-05-03] MEDS: PRENATAL VITAMINS W/ FOLIC ACID TABLET (FP) PO SCH (09:25)
[2021-05-03] MEDS: NICOTINE POLACRILEX 2 MG GUM BUC PRN ×2 (09:25→13:27)
[2021-05-03] MEDS: VENLAFAXINE HCL 75 MG E.R. CAPSULES PO SCH (09:25)
[2021-05-03] MEDS: LISINOPRIL 20 MG TABLET PO SCH (09:25)
[2021-05-03] MEDS: MAG HYDROX/AL HYDROX/SIMETH 30 ML UNIT-DOSE CUP PO PRN (09:31)
[2021-05-03] MEDS: SUVOREXANT 10 MG TABLET PO PRN (21:19)
[2021-05-03] MEDS: hydrOXYzine PAMOATE 25 MG CAPSULE (FP) PO PRN (21:19)
[2021-05-03] MEDS: THIAMINE HCL 100 MG TABLET (FP) PO SCH (21:19)
[2021-05-04] MEDS: INSULIN SLIDING SCALE (NOVOLOG) 1 VIAL SQ SCH ×2 (06:51→17:04)
[2021-05-04] MEDS: metFORMIN HCL 500 MG TABLET (FP) PO SCH ×2 (06:51→17:00)
[2021-05-04] MEDS: VENLAFAXINE HCL 75 MG E.R. CAPSULES PO SCH (10:05)
[2021-05-04] MEDS: PRENATAL VITAMINS W/ FOLIC ACID TABLET (FP) PO SCH (10:05)
[2021-05-04] MEDS: LISINOPRIL 20 MG TABLET PO SCH (10:05)
[2021-05-04] MEDS: IBUPROFEN 400 MG TABLET (FP) PO PRN (10:06)
[2021-05-04] MEDS: MAG HYDROX/AL HYDROX/SIMETH 30 ML UNIT-DOSE CUP PO PRN (10:51)
[2021-05-04] MEDS: THIAMINE HCL 100 MG TABLET (FP) PO SCH (21:33)
[2021-05-04] MEDS: SUVOREXANT 10 MG TABLET PO PRN (21:33)
[2021-05-04] MEDS: hydrOXYzine PAMOATE 25 MG CAPSULE (FP) PO PRN (21:33)
[2021-05-05] MEDS: MAG HYDROX/AL HYDROX/SIMETH 30 ML UNIT-DOSE CUP PO PRN (01:43)
[2021-05-05] MEDS: INSULIN SLIDING SCALE (NOVOLOG) 1 VIAL SQ SCH ×2 (06:01→16:42)
[2021-05-05] MEDS: metFORMIN HCL 500 MG TABLET (FP) PO SCH ×2 (06:01→16:42)
[2021-05-05] MEDS: NICOTINE POLACRILEX 2 MG GUM BUC PRN ×4 (06:47→18:02)
[2021-05-05] MEDS: VENLAFAXINE HCL 75 MG E.R. CAPSULES PO SCH (10:03)
[2021-05-05] MEDS: LISINOPRIL 20 MG TABLET PO SCH (10:04)
[2021-05-05] MEDS: PRENATAL VITAMINS W/ FOLIC ACID TABLET (FP) PO SCH (10:04)
[2021-05-05] MEDS: BISMUTH SUBSALICYLATE 262 MG/15 ML BTL PO PRN (15:19)
[2021-05-05] MEDS: THIAMINE HCL 100 MG TABLET (FP) PO SCH (21:14)
[2021-05-05] MEDS: SUVOREXANT 10 MG TABLET PO PRN (21:15)
[2021-05-05] MEDS: hydrOXYzine PAMOATE 25 MG CAPSULE (FP) PO PRN (21:15)
[2021-05-06] MEDS: metFORMIN HCL 500 MG TABLET (FP) PO SCH ×2 (06:51→16:32)
[2021-05-06] MEDS: INSULIN SLIDING SCALE (NOVOLOG) 1 VIAL SQ SCH ×2 (06:52→16:32)
[2021-05-06] MEDS: PRENATAL VITAMINS W/ FOLIC ACID TABLET (FP) PO SCH (10:30)
[2021-05-06] MEDS: LISINOPRIL 20 MG TABLET PO SCH (10:30)
[2021-05-06] MEDS: VENLAFAXINE HCL 75 MG E.R. CAPSULES PO SCH (10:30)
[2021-05-06] MEDS: BISMUTH SUBSALICYLATE 262 MG/15 ML BTL PO PRN (10:32)
[2021-05-06 14:10] LABS: SARS-CoV-2 NAA Not Detected (Not Detected)
[2021-05-06] MEDS: NICOTINE POLACRILEX 2 MG GUM BUC PRN ×2 (17:46→21:28)
[2021-05-06] MEDS: THIAMINE HCL 100 MG TABLET (FP) PO SCH (21:27)
[2021-05-06] MEDS: SUVOREXANT 10 MG TABLET PO PRN (21:28)
[2021-05-06] MEDS: hydrOXYzine PAMOATE 25 MG CAPSULE (FP) PO PRN (21:28)
[2021-05-07] MEDS: metFORMIN HCL 500 MG TABLET (FP) PO SCH ×2 (06:33→16:49)
[2021-05-07] MEDS: INSULIN SLIDING SCALE (NOVOLOG) 1 VIAL SQ SCH ×2 (06:33→16:50)
[2021-05-07] MEDS: BISMUTH SUBSALICYLATE 262 MG/15 ML BTL PO PRN ×2 (06:34→19:12)
[2021-05-07] MEDS: NICOTINE POLACRILEX 2 MG GUM BUC PRN ×2 (06:35→09:18)
[2021-05-07] MEDS: LISINOPRIL 20 MG TABLET PO SCH (09:17)
[2021-05-07] MEDS: VENLAFAXINE HCL 75 MG E.R. CAPSULES PO SCH (09:17)
[2021-05-07] MEDS: PRENATAL VITAMINS W/ FOLIC ACID TABLET (FP) PO SCH (09:17)
[2021-05-07] MEDS: THIAMINE HCL 100 MG TABLET (FP) PO SCH (21:02)
[2021-05-07] MEDS: hydrOXYzine PAMOATE 25 MG CAPSULE (FP) PO PRN (21:03)
[2021-05-07] MEDS: SUVOREXANT 10 MG TABLET PO PRN (21:03)
[2021-05-08] MEDS: IBUPROFEN 400 MG TABLET (FP) PO PRN (06:22)
[2021-05-08] MEDS: metFORMIN HCL 500 MG TABLET (FP) PO SCH ×2 (06:22→16:38)
[2021-05-08] MEDS: INSULIN SLIDING SCALE (NOVOLOG) 1 VIAL SQ SCH ×2 (06:29→16:39)
[2021-05-08] MEDS: BISMUTH SUBSALICYLATE 262 MG/15 ML BTL PO PRN ×2 (09:34→21:30)
[2021-05-08] MEDS: VENLAFAXINE HCL 75 MG E.R. CAPSULES PO SCH (09:35)
[2021-05-08] MEDS: PRENATAL VITAMINS W/ FOLIC ACID TABLET (FP) PO SCH (09:35)
[2021-05-08] MEDS: LISINOPRIL 20 MG TABLET PO SCH (09:35)
[2021-05-08] MEDS: NICOTINE POLACRILEX 2 MG GUM BUC PRN (16:39)
[2021-05-08] MEDS: SUVOREXANT 10 MG TABLET PO PRN (21:29)
[2021-05-08] MEDS: THIAMINE HCL 100 MG TABLET (FP) PO SCH (21:29)
[2021-05-09] MEDS: metFORMIN HCL 500 MG TABLET (FP) PO SCH ×2 (06:40→16:35)
[2021-05-09] MEDS: BISMUTH SUBSALICYLATE 262 MG/15 ML BTL PO PRN (06:40)
[2021-05-09] MEDS: NICOTINE POLACRILEX 2 MG GUM BUC PRN ×4 (06:40→21:22)
[2021-05-09] MEDS: INSULIN SLIDING SCALE (NOVOLOG) 1 VIAL SQ SCH ×2 (06:43→16:36)
[2021-05-09] MEDS: LISINOPRIL 20 MG TABLET PO SCH (09:58)
[2021-05-09] MEDS: PRENATAL VITAMINS W/ FOLIC ACID TABLET (FP) PO SCH (09:58)
[2021-05-09] MEDS: VENLAFAXINE HCL 75 MG E.R. CAPSULES PO SCH (09:58)
[2021-05-09] MEDS: SUVOREXANT 10 MG TABLET PO PRN (21:21)
[2021-05-09] MEDS: THIAMINE HCL 100 MG TABLET (FP) PO SCH (21:22)
[2021-05-10] MEDS: metFORMIN HCL 500 MG TABLET (FP) PO SCH ×2 (06:30→16:50)
[2021-05-10] MEDS: INSULIN SLIDING SCALE (NOVOLOG) 1 VIAL SQ SCH ×2 (07:07→16:51)
[2021-05-10] MEDS: LISINOPRIL 20 MG TABLET PO SCH (09:21)
[2021-05-10] MEDS: PRENATAL VITAMINS W/ FOLIC ACID TABLET (FP) PO SCH (09:21)
[2021-05-10] MEDS: VENLAFAXINE HCL 75 MG E.R. CAPSULES PO SCH (09:21)
[2021-05-10] MEDS: NICOTINE POLACRILEX 2 MG GUM BUC PRN ×2 (12:41→21:04)
[2021-05-10] MEDS: THIAMINE HCL 100 MG TABLET (FP) PO SCH (21:03)
[2021-05-10] MEDS: hydrOXYzine PAMOATE 25 MG CAPSULE (FP) PO PRN (21:03)
[2021-05-10] MEDS: BISMUTH SUBSALICYLATE 262 MG/15 ML BTL PO PRN (21:03)
[2021-05-11] MEDS: metFORMIN HCL 500 MG TABLET (FP) PO SCH ×2 (06:20→16:24)
[2021-05-11] MEDS: INSULIN SLIDING SCALE (NOVOLOG) 1 VIAL SQ SCH ×2 (06:29→16:25)
[2021-05-11] MEDS: BISMUTH SUBSALICYLATE 262 MG/15 ML BTL PO PRN (09:41)
[2021-05-11] MEDS: PRENATAL VITAMINS W/ FOLIC ACID TABLET (FP) PO SCH (09:42)
[2021-05-11] MEDS: LISINOPRIL 20 MG TABLET PO SCH (09:43)
[2021-05-11] MEDS: IBUPROFEN 400 MG TABLET (FP) PO PRN (09:43)
[2021-05-11] MEDS: VENLAFAXINE HCL 75 MG E.R. CAPSULES PO SCH (09:43)
[2021-05-11] MEDS: NICOTINE POLACRILEX 2 MG GUM BUC PRN ×3 (09:44→21:49)
[2021-05-11] MEDS: THIAMINE HCL 100 MG TABLET (FP) PO SCH (21:19)
[2021-05-11] MEDS: hydrOXYzine PAMOATE 25 MG CAPSULE (FP) PO PRN (21:19)
[2021-05-12] MEDS: metFORMIN HCL 500 MG TABLET (FP) PO SCH ×2 (06:48→16:29)
[2021-05-12] MEDS: INSULIN SLIDING SCALE (NOVOLOG) 1 VIAL SQ SCH ×2 (06:49→16:35)
[2021-05-12] MEDS: NICOTINE POLACRILEX 2 MG GUM BUC PRN ×2 (06:53→16:35)
[2021-05-12] MEDS: IBUPROFEN 400 MG TABLET (FP) PO PRN (10:29)
[2021-05-12] MEDS: LISINOPRIL 20 MG TABLET PO SCH (10:29)
[2021-05-12] MEDS: PRENATAL VITAMINS W/ FOLIC ACID TABLET (FP) PO SCH (10:29)
[2021-05-12] MEDS: VENLAFAXINE HCL 75 MG E.R. CAPSULES PO SCH (10:29)
[2021-05-12] MEDS: BISMUTH SUBSALICYLATE 262 MG/15 ML BTL PO PRN ×2 (10:30→21:35)
[2021-05-12] MEDS ORDERED: INSULIN SLIDING SCALE (NOVOLOG) 1 VIAL SQ ONE (16:32)
[2021-05-12] MEDS: THIAMINE HCL 100 MG TABLET (FP) PO SCH (21:36)
[2021-05-13] MEDS: NICOTINE POLACRILEX 2 MG GUM BUC PRN ×3 (06:19→21:17)
[2021-05-13] MEDS: INSULIN SLIDING SCALE (NOVOLOG) 1 VIAL SQ SCH ×2 (06:19→16:48)
[2021-05-13] MEDS: metFORMIN HCL 500 MG TABLET (FP) PO SCH ×2 (06:19→16:37)
[2021-05-13 07:15] VITALS: TEMP 97.9
[2021-05-13] MEDS: VENLAFAXINE HCL 75 MG E.R. CAPSULES PO SCH (10:25)
[2021-05-13] MEDS: LISINOPRIL 20 MG TABLET PO SCH (10:25)
[2021-05-13] MEDS: PRENATAL VITAMINS W/ FOLIC ACID TABLET (FP) PO SCH (10:25)
[2021-05-13] MEDS: BISMUTH SUBSALICYLATE 262 MG/15 ML BTL PO PRN ×2 (11:09→21:16)
[2021-05-13] MEDS: hydrOXYzine PAMOATE 25 MG CAPSULE (FP) PO PRN (21:16)
[2021-05-13] MEDS: THIAMINE HCL 100 MG TABLET (FP) PO SCH (21:16)
[2021-05-13] MEDS: IBUPROFEN 400 MG TABLET (FP) PO PRN (21:17)
[2021-05-14] MEDS: metFORMIN HCL 500 MG TABLET (FP) PO SCH (06:43)
[2021-05-14] MEDS: INSULIN SLIDING SCALE (NOVOLOG) 1 VIAL SQ SCH (06:43)
[2021-05-14] MEDS: BISMUTH SUBSALICYLATE 262 MG/15 ML BTL PO PRN (06:44)
[2021-05-14 07:12] VITALS: BP 143/65; PULSE 68
[2021-05-14] MEDS: PRENATAL VITAMINS W/ FOLIC ACID TABLET (FP) PO SCH (10:05)
[2021-05-14] MEDS: VENLAFAXINE HCL 75 MG E.R. CAPSULES PO SCH (10:05)
[2021-05-14] MEDS: LISINOPRIL 20 MG TABLET PO SCH (10:05)
== END 2021-05-14 11:27 | disposition home or self-care (01) | DRG 772 ==
LOC: YASAS 13:05 → Y3W 13:07
PROVIDERS: ADMIT Allergy & Immunology; ATTEND Allergy & Immunology
PROC: HZ42ZZZ Group Counseling for Substance Abuse Treatment, Cognitive-Behavioral (ICD-10-PCS; principal; 2021-04-27)
DX: F10.20 Alcohol dependence, uncomplicated (principal); F14.20 Cocaine dependence, uncomplicated; F12.20 Cannabis dependence, uncomplicated; F25.9 Schizoaffective disorder, unspecified; F19.282 Other psychoactive substance dependence with psychoactive substance-induced sleep disorder; F41.8 Other specified anxiety disorders; F32.A Depression, unspecified; G62.9 Polyneuropathy, unspecified; I10 Essential (primary) hypertension; E78.5 Hyperlipidemia, unspecified; K21.9 Gastro-esophageal reflux disease without esophagitis; E11.9 Type 2 diabetes mellitus without complications; Z79.84 Long term (current) use of oral hypoglycemic drugs; Z91.013 Allergy to seafood
CPT/HCPCS: 82962; C9803; U0003; U0005